=== PATIENT | male | born 1935 | race Two or more races ===

== ENCOUNTER 2017-02-24 09:33 | Inpatient (IN) | payer MEDICARE, OTHER ==
[~2017-02-24] VITALS: Ht 165.1 cm; Wt 68.0 kg
[2017-02-24] MEDS ORDERED: LOSARTAN-HCTZ1 EAC2 ORAL (09:50)
[2017-02-24] MEDS ORDERED: TAMSULOSIN HCL0.4 MG ORAL (09:50)
[2017-02-24] MEDS ORDERED: METFORMIN HCL500 M1 ORAL (09:50)
[2017-02-24] MEDS ORDERED: AMLODIPINE BESYL5 MG ORAL (09:50)
[2017-02-24] MEDS ORDERED: ATENOLOL50 MG ORAL (09:50)
[2017-02-24] MEDS ORDERED: CRESTOR10 M2 ORAL (09:50)
[2017-02-24 10:00] VITALS: BP 150/63
[2017-02-24] MEDS ORDERED: Vancomycin 1 GM in NS 275 ML IV ONE (10:15)
[2017-02-24] MEDS ORDERED: Morphine Sulfate 2mg/ml Inj IVP ONE (10:15)
[2017-02-24] MEDS ORDERED: Vancomycin 1gm inj IVPB ONE (10:49)
[2017-02-24 10:58] LABS: MEAN CORPUSCULAR HEMOGLOBIN 30.6 PG (27.0-31.0); MEAN CORPUSCULAR HGB CONC 32.6 G/DL (32.0-36.0); MEAN CORPUSCULAR VOLUME 94 FL (80-99); MEAN PLATELET VOLUME 8.5 FL (6.5-10.1); PLATELET COUNT 255 K/UL (150-450); RED BLOOD COUNT 4.58 M/UL (4.70-6.10); RED CELL DISTRIBUTION WIDTH 12.1 % (11.6-14.8); WHITE BLOOD COUNT 21.3 K/UL (4.8-10.8)
[2017-02-24 11:13] LABS: TROPONIN I < 0.30 ng/mL (<=0.30)
[2017-02-24 11:15] LABS: ALANINE AMINOTRANSFERASE 12 U/L (3-41); ALBUMIN/GLOBULIN RATIO 0.8 (1.0-2.7); ANION GAP 15 (5-15); ASPARTATE AMINO TRANSFERASE 14 U/L (5-40); CALCIUM 9.1 mg/dL (8.6-10.2); CARBON DIOXIDE 28 mEQ/L (20-30); CHLORIDE 90 mEQ/L (98-107); CREATININE 1.5 mg/dL (0.7-1.2); HEMOLYSIS 2; POTASSIUM 3.2 mEQ/L (3.4-4.9); SODIUM 133 mEQ/L (135-145); TOTAL PROTEIN 7.9 g/dL (6.6-8.7)
[2017-02-24 11:16] LABS: APPEARANCE,URINE CLEAR; KETONES,URINE 1+ (NEGATIVE); LEUKOCYTE ESTERASE ,URINE 1+ (NEGATIVE); NITRITE,URINE NEGATIVE (NEGATIVE); PH,URINE 6 (4.5-8.0); PROTEIN,URINE 3+ (NEGATIVE); UROBILINOGEN,URINE NORMAL MG/DL (0.0-1.0)
[2017-02-24 11:25] LABS: BACTERIA,URINE FEW /HPF; SQUAMOUS EPITHELIAL CELL,UR OCCASIONAL /LPF (NONE/OCC)
[2017-02-24 11:26] LABS: CKMB 2.6 ng/mL (< 6.7)
[2017-02-24 11:43] LABS: BAND NEUTROPHILS % (MANUAL) 0 % (0-8); BASOPHILS % (MANUAL) 0 % (0-2); EOSINOPHILS % (MANUAL) 0 % (0-3); LYMPHOCYTES % (MANUAL) 5 % (20-45); NEUTROPHILS % (MANUAL) 87 % (45-75); PLATELET ESTIMATE ADEQUATE; PLATELET MORPHOLOGY NORMAL; TOTAL CELLS COUNTED 100
[2017-02-24] MEDS ORDERED: Nitroglycerin Subl 0.4mg tab (Bottle Of 25) SL PRN (11:45)
[2017-02-24] MEDS ORDERED: DuoNeb 0.5-3(2.5)mg/3ml neb HHN PRN (11:45)
[2017-02-24] MEDS ORDERED: Miralax 17gm pkt ORAL PRN (11:45)
--- NOTE | 2017-02-24 11:58 | Emergency Room Report ---
History of Present Illness General Chief Complaint: Skin Rash/Abscess Source: Patient Present Illness HPI 81-year-old male presents to ED for evaluation of left foot swelling x3 days. States that he initially had a fever and now started developing swelling and pain to the left foot. Foot is warm to touch. Swollen. Pain is a 5/10, throbbing, nonradiating. Denies chest pain or shortness of breath. Denies any fever at this time. No other aggravating relieving factors. Denies any other associated symptoms Allergies: Coded Allergies: No Known Allergies (Unverified , 02/24/17) Patient History Past Medical History: DM, HTN Past Surgical History: none Pertinent Family History: none Social History: Denies: alcohol use, drug use, smoking Immunizations: UTD Reviewed Nursing Documentation: PMH: Agreed, PSxH: Agreed Nursing Documentation-PMH Hx Hypertension: Yes Hx Diabetes: Yes Review of Systems All Other Systems: negative except mentioned in HPI Physical Exam Vital Signs Date Time Temp Pulse Resp B/P Pulse Ox O2 Delivery O2 Flow Rate FiO2 02/24/17 09:44 98.1 74 20 121/67 97 Room Air Sp02 EP Interpretation: reviewed, normal General Appearance: no apparent distress, alert, GCS 15, non-toxic Head: normocephalic Eyes: bilateral eye PERRL, bilateral eye normal inspection ENT: normal ENT inspection Neck: normal inspection Respiratory: chest non-tender, lungs clear, normal breath sounds, speaking full sentences Cardiovascular #1: regular rate, rhythm, no edema Gastrointestinal: normal bowel sounds, non tender, soft, non-distended, no guarding, no rebound Rectal: deferred Genitourinary: no CVA tenderness Musculoskeletal: back normal, gait/station normal, normal range of motion, non- tender, swelling - LLE Neurologic: alert, oriented x3, responsive, motor strength/tone normal, sensory intact, speech normal Psychiatric: normal inspection Skin: other - erythema/induration to LLE Lymphatic: normal inspection Medical Decision Making Diagnostic Impression: Primary Impression: Left leg cellulitis ER Course Hospital Course 81-year-old male presents to ED with redness, swelling to LLE Differential diagnoses include: Cellulitis, DVT, abscess, rash. Clinical course Patient placed on stretcher. After initial history and physical I ordered labs , blood Cx, UA, IVFs, doppler US of LLE labs reviewed - leukocytosis, Hb/Hct stable, no electrolyte abnormalities. Doppler US - no evidence of DVT antibiotics given. Case discussed with Dr Jackson and he agreed to accept the patient to his service for further care and support Diagnosis - left leg cellulitis Patient admitted to floor in serious condition Labs Test 02/24/17 10:20 02/24/17 11:00 White Blood Count 21.3 K/UL (4.8-10.8) Red Blood Count 4.58 M/UL (4.70-6.10) Hemoglobin 14.0 G/DL (14.2-18.0) Hematocrit 42.9 % (42.0-52.0) Mean Corpuscular Volume 94 FL (80-99) Mean Corpuscular Hemoglobin 30.6 PG (27.0-31.0) Mean Corpuscular Hemoglobin Concent 32.6 G/DL (32.0-36.0) Red Cell Distribution Width 12.1 % (11.6-14.8) Platelet Count 255 K/UL (150-450) Mean Platelet Volume 8.5 FL (6.5-10.1) Neutrophils (%) (Auto) % (45.0-75.0) Lymphocytes (%) (Auto) % (20.0-45.0) Monocytes (%) (Auto) % (1.0-10.0) Eosinophils (%) (Auto) % (0.0-3.0) Basophils (%) (Auto) % (0.0-2.0) Differential Total Cells Counted 100 Neutrophils % (Manual) 87 % (45-75) Lymphocytes % (Manual) 5 % (20-45) Monocytes % (Manual) 8 % (1-10) Eosinophils % (Manual) 0 % (0-3) Basophils % (Manual) 0 % (0-2) Band Neutrophils 0 % (0-8) Platelet Estimate Adequate Platelet Morphology Normal Red Blood Cell Morphology Normal Sodium Level 133 mEQ/L (135-145) Potassium Level 3.2 mEQ/L (3.4-4.9) Chloride Level 90 mEQ/L (98-107) Carbon Dioxide Level 28 mEQ/L (20-30) Anion Gap 15 (5-15) Blood Urea Nitrogen 32 mg/dL (7-23) Creatinine 1.5 mg/dL (0.7-1.2) Estimat Glomerular Filtration Rate mL/min (>60) Glucose Level 171 mg/dL (74-106) Lactic Acid Level 1.70 mmol/L (0.66-2.22) Calcium Level 9.1 mg/dL (8.6-10.2) Total Bilirubin 0.8 mg/dL (0.0-1.2) Aspartate Amino Transf (AST/SGOT) 14 U/L (5-40) Alanine Aminotransferase (ALT/SGPT) 12 U/L (3-41) Alkaline Phosphatase 55 U/L (40-129) Total Creatine Kinase 90 U/L (38-174) Creatine Kinase MB 2.6 ng/mL (< 6.7) Creatine Kinase MB Relative Index 2.8 Troponin I < 0.30 ng/mL (<=0.30) Pro-B-Type Natriuretic Peptide 785 pg/mL (0-450) Total Protein 7.9 g/dL (6.6-8.7) Albumin 3.6 g/dL (3.5-5.2) Globulin 4.3 g/dL Albumin/Globulin Ratio 0.8 (1.0-2.7) Urine Color Yellow Urine Appearance Clear Urine pH 6 (4.5-8.0) Urine Specific [place] 1.015 (1.005-1.035) Urine Protein 3+ (NEGATIVE) Urine Glucose (UA) Negative (NEGATIVE) Urine Ketones 1+ (NEGATIVE) Urine Occult Blood 2+ (NEGATIVE) Urine Nitrite Negative (NEGATIVE) Urine Bilirubin Negative (NEGATIVE) Urine Urobilinogen Normal MG/DL (0.0-1.0) Urine Leukocyte Esterase 1+ (NEGATIVE) Urine RBC 5-10 /HPF (0 - 0) Urine WBC 2-4 /HPF (0 - 0) Urine Squamous Epithelial Cells Occasional /LPF Urine Bacteria Few /HPF (NONE) CT/MRI/US Diagnostic Results CT/MRI/US Diagnostic Results : Imaging Test Ordered: Doppler US Impression negative for DVT Last Vital Signs Date Time Temp Pulse Resp B/P Pulse Ox O2 Delivery O2 Flow Rate FiO2 02/24/17 10:00 98.6 103 18 150/63 98 Room Air Status: improved Disposition: ADMITTED INPATIENT Condition: Serious Referrals: NON PHYSICIAN (PCP) TALI IBARRA M.D. Feb 24, 2017 11:58
[2017-02-24 12:00] VITALS: BP 130/63
--- NOTE | 2017-02-24 12:34 | Consultation ---
Consult Note Consult Note [id number] EDWAR TAM M.D. Feb 24, 2017 12:34
--- NOTE | 2017-02-24 16:16 | Consultation ---
DATE OF CONSULTATION: 02/24/2017 INFECTIOUS DISEASES CONSULTATION CONSULTING PHYSICIAN: Diego Nugent M.D. REFERRING PHYSICIAN: Sybil Jackson M.D. REASON FOR CONSULTATION: Evaluation of the patient for lower extremity cellulitis and antibiotic management. HISTORY OF PRESENT ILLNESS: The patient is an 81-year-old male, who was admitted to this medical center due to and swelling and erythema of the left lower extremity. Infectious Disease consultation has been requested for further evaluation of the patient and antibiotic management. PAST MEDICAL HISTORY: 1. Diabetes. 2. Hypertension. MEDICATIONS: IV vancomycin and cefepime. ALLERGIES: No known drug allergies. SOCIAL HISTORY: Negative for alcohol, drug abuse, or smoking. FAMILY HISTORY: Noncontributory. PHYSICAL EXAMINATION: VITAL SIGNS: Temperature 98 degrees, blood pressure 150/62, pulse 86, and respiratory rate 18. HEENT: No pale conjunctivae. No icterus. NECK: No lymphadenopathy. CHEST: Clear. HEART: S1 and S2. ABDOMEN: Soft. EXTREMITIES: The patient has left lower extremity cellulitis and tenderness. Mild cellulitis of the right lower extremity. LABORATORY DATA: White blood cells 21, hemoglobin 14, and platelets 255,000. UA is unremarkable. BUN 32 and creatinine 1.5. ALT, AST, and alkaline phosphatase are unremarkable. ASSESSMENT: The patient is an 81-year-old male with multiple medical problems as listed above, who has, 1. Leukocytosis. 2. Lower extremity cellulitis. 3. Possible sepsis. 4. Bacteremia. PLAN: 1. We will continue the patient on IV vancomycin and cefepime day #1, we may stop IV cefepime soon. 2. Monitor CBC. 3. Monitor BMP. 4. Monitor blood cultures. 5. Monitor clinical course. 6. Based on the patient's clinical course and labs, we will do further recommendations. Thank you, Dr. Jackson,for allowing me to participate in the care of this patient. I will follow the patient with you during this hospitalization. Diego Nugent M.D. DR: PETERSON JOB#: [id number] CC:
[2017-02-24] MEDS: Morphine Sulfate 2mg/ml Inj IVP PRN (16:23)
[2017-02-24] MEDS: Cefepime HCl 2 GM in D5W 110 ML IV SCH (16:23)
[2017-02-24] MEDS: NovoLOG Insulin Flexpen SUBQ SCH ×3 (16:30→20:52)
--- NOTE | 2017-02-24 19:26 | History and Physical ---
History of Present Illness General Date patient seen: Feb 24, 2017 Reason for Hospitalization: Skin Rash/Abscess Present Illness HPI 81-year-old male with pmhx of HTN, DM presented to ED for evaluation of left foot swelling x3 days. He initially had a fever and now started developing swelling and pain to the left foot. Foot is warm to touch. Swollen. Pain is a 5/10, throbbing, nonradiating. Denies chest pain or shortness of breath. Denies any fever at this time. No other aggravating relieving factors. Denies any other associated symptoms Allergies: Coded Allergies: No Known Allergies (Unverified , 02/24/17) Medication History Scheduled Amlodipine Besylate* (Amlodipine Besylate*), 5 MG ORAL DAILY, (Reported) Atenolol* (Tenormin*), 50 MG ORAL DAILY, (Reported) Losartan/Hydrochlorothiazide (Losartan-Hctz 50-12.5 Mg Tab), 1 TAB ORAL DAILY, ( Reported) Metformin Hcl* (Metformin Hcl*), 500 MG ORAL DAILY, (Reported) Rosuvastatin Calcium* (Crestor*), 5 MG ORAL DAILY, (Reported) Tamsulosin Hcl (Tamsulosin Hcl*), 0.4 MG ORAL BEDTIME, (Reported) Patient History Healthcare decision maker Resuscitation status Full Code Advanced Directive on File Past Medical/Surgical History Past Medical/Surgical History: (1) Diabetes mellitus (2) HTN (hypertension) Review of Systems Constitutional: Reports: fever, malaise All Other Systems: negative except mentioned in HPI Physical Exam General Appearance: WD/WN, no apparent distress Lines, tubes and drains: peripheral HEENT: normocephalic, atraumatic Neck: non-tender, normal alignment Respiratory/Chest: chest wall non-tender, lungs clear Cardiovascular/Chest: normal peripheral pulses Abdomen: normal bowel sounds Genitourinary/Rectal: normal genital exam Extremities: normal range of motion Last 24 Hour Vital Signs Date Time Temp Pulse Resp B/P Pulse Ox O2 Delivery O2 Flow Rate FiO2 02/24/17 17:46 81 147/82 02/24/17 17:10 98.0 02/24/17 16:22 81 147/82 02/24/17 13:58 81 19 147/82 100 Room Air 02/24/17 12:00 98.6 67 22 130/63 97 Room Air 02/24/17 10:00 98.6 103 18 150/63 98 Room Air 02/24/17 09:44 98.1 74 20 121/67 97 Room Air Laboratory Tests Test 02/24/17 10:20 02/24/17 11:00 White Blood Count 21.3 K/UL (4.8-10.8) H Red Blood Count 4.58 M/UL (4.70-6.10) L Hemoglobin 14.0 G/DL (14.2-18.0) L Hematocrit 42.9 % (42.0-52.0) Mean Corpuscular Volume 94 FL (80-99) Mean Corpuscular Hemoglobin 30.6 PG (27.0-31.0) Mean Corpuscular Hemoglobin Concent 32.6 G/DL (32.0-36.0) Red Cell Distribution Width 12.1 % (11.6-14.8) Platelet Count 255 K/UL (150-450) Mean Platelet Volume 8.5 FL (6.5-10.1) Neutrophils (%) (Auto) % (45.0-75.0) Lymphocytes (%) (Auto) % (20.0-45.0) Monocytes (%) (Auto) % (1.0-10.0) Eosinophils (%) (Auto) % (0.0-3.0) Basophils (%) (Auto) % (0.0-2.0) Differential Total Cells Counted 100 Neutrophils % (Manual) 87 % (45-75) H Lymphocytes % (Manual) 5 % (20-45) L Monocytes % (Manual) 8 % (1-10) Eosinophils % (Manual) 0 % (0-3) Basophils % (Manual) 0 % (0-2) Band Neutrophils 0 % (0-8) Platelet Estimate Adequate Platelet Morphology Normal Red Blood Cell Morphology Normal Sodium Level 133 mEQ/L (135-145) L Potassium Level 3.2 mEQ/L (3.4-4.9) L Chloride Level 90 mEQ/L (98-107) L Carbon Dioxide Level 28 mEQ/L (20-30) Anion Gap 15 (5-15) Blood Urea Nitrogen 32 mg/dL (7-23) H Creatinine 1.5 mg/dL (0.7-1.2) H Estimat Glomerular Filtration Rate mL/min (>60) Glucose Level 171 mg/dL (74-106) H Lactic Acid Level 1.70 mmol/L (0.66-2.22) Calcium Level 9.1 mg/dL (8.6-10.2) Total Bilirubin 0.8 mg/dL (0.0-1.2) Aspartate Amino Transf (AST/SGOT) 14 U/L (5-40) Alanine Aminotransferase (ALT/SGPT) 12 U/L (3-41) Alkaline Phosphatase 55 U/L (40-129) Total Creatine Kinase 90 U/L (38-174) Creatine Kinase MB 2.6 ng/mL (< 6.7) Creatine Kinase MB Relative Index 2.8 Troponin I < 0.30 ng/mL (<=0.30) Pro-B-Type Natriuretic Peptide 785 pg/mL (0-450) H Total Protein 7.9 g/dL (6.6-8.7) Albumin 3.6 g/dL (3.5-5.2) Globulin 4.3 g/dL Albumin/Globulin Ratio 0.8 (1.0-2.7) L Urine Color Yellow Urine Appearance Clear Urine pH 6 (4.5-8.0) Urine Specific [place] 1.015 (1.005-1.035) Urine Protein 3+ (NEGATIVE) H Urine Glucose (UA) Negative (NEGATIVE) Urine Ketones 1+ (NEGATIVE) H Urine Occult Blood 2+ (NEGATIVE) H Urine Nitrite Negative (NEGATIVE) Urine Bilirubin Negative (NEGATIVE) Urine Urobilinogen Normal MG/DL (0.0-1.0) Urine Leukocyte Esterase 1+ (NEGATIVE) H Urine RBC 5-10 /HPF (0 - 0) H Urine WBC 2-4 /HPF (0 - 0) Urine Squamous Epithelial Cells Occasional /LPF Urine Bacteria Few /HPF (NONE) Height (Feet): 5 Height (Inches): 5.00 Weight (Pounds): 150 Medications Current Medications Medications (Trade) Dose Ordered Sig/Mariusz Route PRN Reason Start Time Stop Time Status Last Admin Dose Admin Acetaminophen (Tylenol) 650 mg Q4H PRN ORAL fever 02/24/17 11:45 03/26/17 11:44 Albuterol/ Ipratropium 3 ml 3 ml EVERY 4 HOURS PRN HHN Shortness of Breath 02/24/17 11:45 03/01/17 11:44 Amlodipine Besylate (Norvasc) 5 mg DAILY ORAL 02/24/17 18:00 03/26/17 17:59 02/24/17 17:46 Atenolol (Tenormin) 50 mg DAILY ORAL 02/24/17 14:30 03/26/17 14:29 02/24/17 16:22 Cefepime HCl 2 gm/ Dextrose 110 ml @ 220 mls/hr Q24H IV 02/24/17 15:00 03/03/17 14:59 02/24/17 16:23 Dextrose (Dextrose 50%) STAT PRN IV Hypoglycemia 02/24/17 11:45 03/26/17 11:44 Heparin Sodium (Porcine) (Heparin 5000 units/ml) 5,000 units EVERY 12 HOURS SUBQ 02/24/17 21:00 03/26/17 20:59 Insulin Aspart (NovoLOG) BEFORE MEALS AND HS SUBQ 02/24/17 16:30 03/26/17 16:29 02/24/17 17:48 Morphine Sulfate (Morphine Sulfate) 2 mg EVERY 4 HOURS PRN IVP Moderate Pain (Pain Scale 4-6) 02/24/17 11:45 03/03/17 11:44 02/24/17 16:23 Nitroglycerin (Ntg) 0.4 mg Q5M PRN SL Prn Chest Pain 02/24/17 11:45 03/26/17 11:44 Ondansetron HCl (Zofran) 4 mg Q6H PRN IVP Nausea & Vomiting 02/24/17 11:45 03/26/17 11:44 Polyethylene Glycol (Miralax) 17 gm DAILYPRN PRN ORAL Constipation 02/24/17 11:45 03/26/17 11:44 Tamsulosin HCl (Flomax) 0.4 mg BEDTIME ORAL 02/24/17 21:00 03/26/17 20:59 Temazepam (Restoril) 15 mg HSPRN PRN ORAL Insomnia 02/24/17 11:45 03/03/17 11:44 Vancomycin HCl/ Dextrose (Vancomycin/D5W) 275 ml @ 183.3 mls/ hr Q24H IVPB 02/25/17 06:00 03/02/17 05:59 Assessment/Plan Problem List: (1) Sepsis ICD Codes: A41.9 - Sepsis, unspecified organism SNOMED: 52403908 (2) Cellulitis ICD Codes: L03.90 - Cellulitis, unspecified SNOMED: 950090598 (3) Diabetes mellitus ICD Codes: E11.9 - Type 2 diabetes mellitus without complications SNOMED: 07846915 (4) HTN (hypertension) ICD Codes: I10 - Essential (primary) hypertension SNOMED: 49009952 Assessment/Plan check cultures broad spectrum abx sliding scale diabetic diet SHANE GALINDO Feb 24, 2017 19:26
[2017-02-24 20:00] VITALS: BP 133/67
[2017-02-24] MEDS: Tamsulosin 0.4mg cap ORAL SCH (20:51)
[2017-02-24] MEDS: Heparin 5000 units/ml inj SUBQ SCH (20:53)
[2017-02-24 23:42] VITALS: BP 131/66
[2017-02-25] VITALS: BP 104/41
[2017-02-25 04:00] VITALS: BP 124/63
[2017-02-25] MEDS: NovoLOG Insulin Flexpen SUBQ SCH ×4 (05:47→20:44)
[2017-02-25] MEDS ORDERED: Vancomycin 750 MG in D5W 275 ML IVPB SCH (06:00)
[2017-02-25 08:18] LABS: ALANINE AMINOTRANSFERASE 10 U/L (3-41); ALBUMIN/GLOBULIN RATIO 0.7 (1.0-2.7); ANION GAP 11 (5-15); ASPARTATE AMINO TRANSFERASE 10 U/L (5-40); CALCIUM 8.6 mg/dL (8.6-10.2); CARBON DIOXIDE 26 mEQ/L (20-30); CHLORIDE 97 mEQ/L (98-107); CREATININE 1.1 mg/dL (0.7-1.2); HEMOLYSIS 1; MEAN CORPUSCULAR HEMOGLOBIN 31.1 PG (27.0-31.0); MEAN CORPUSCULAR HGB CONC 33.3 G/DL (32.0-36.0); MEAN CORPUSCULAR VOLUME 93 FL (80-99); MEAN PLATELET VOLUME 7.9 FL (6.5-10.1); PLATELET COUNT 232 K/UL (150-450); POTASSIUM 2.9 mEQ/L (3.4-4.9); RED BLOOD COUNT 3.89 M/UL (4.70-6.10); RED CELL DISTRIBUTION WIDTH 12.2 % (11.6-14.8); SODIUM 134 mEQ/L (135-145); TOTAL PROTEIN 6.4 g/dL (6.6-8.7); WHITE BLOOD COUNT 18.9 K/UL (4.8-10.8)
[2017-02-25 08:19] VITALS: BP 133/67
[2017-02-25] MEDS: Heparin 5000 units/ml inj SUBQ SCH ×2 (09:01→20:43)
[2017-02-25] MEDS: Morphine Sulfate 2mg/ml Inj IVP PRN (11:19)
[2017-02-25 11:48] LABS: BAND NEUTROPHILS % (MANUAL) 2 % (0-8); LYMPHOCYTES % (MANUAL) 9 % (20-45); NEUTROPHILS % (MANUAL) 79 % (45-75); TOTAL CELLS COUNTED 100
[2017-02-25 11:49] LABS: BASOPHILS % (MANUAL) 0 % (0-2); EOSINOPHILS % (MANUAL) 0 % (0-3); PLATELET ESTIMATE ADEQUATE; PLATELET MORPHOLOGY NORMAL
[2017-02-25 11:59] VITALS: BP 120/63
--- NOTE | 2017-02-25 12:27 | Diagnostic Imaging Report ---
APPROVED REPORT CPT Code: 02529 Present Symptoms Comments: Swelling and pain LEG: Venous imaging reveals a patent deep venous system. There is no evidence of thrombus within the femoral, popliteal or tibial segments. The greater saphenous vein is also within normal limits. Doppler indicates normal spontaneous flow within these segments.
--- NOTE | 2017-02-25 13:17 | Infectious Diseases Prog Note ---
Assessment/Plan Assessment/Plan A; Left leg cellulitis DM HPN P; Continue Vancomycin & Cefepime Subjective ROS Limited/Unobtainable: No Respiratory: Reports: no symptoms Cardiovascular: Reports: no symptoms Gastrointestinal/Abdominal: Reports: no symptoms Genitourinary: Reports: no symptoms Musculoskeletal: Reports: other - in left leg, pain, swelling Allergies: Coded Allergies: No Known Allergies (Unverified , 02/24/17) Objective Vital Signs Last 24 Hour Vital Signs Date Time Temp Pulse Resp B/P Pulse Ox O2 Delivery O2 Flow Rate FiO2 02/25/17 11:59 98.1 64 19 120/63 94 Room Air 02/25/17 09:02 75 133/67 02/25/17 09:02 75 133/67 02/25/17 08:19 97.3 75 19 133/67 95 Room Air 02/25/17 07:51 74 16 Room Air 21 02/25/17 04:00 97.8 75 18 124/63 93 Room Air 02/24/17 23:42 97.8 76 18 131/66 90 Room Air 02/24/17 20:00 98.1 77 19 133/67 91 Room Air 02/24/17 17:46 81 147/82 02/24/17 17:10 98.0 02/24/17 16:22 81 147/82 02/24/17 13:58 81 19 147/82 100 Room Air Height (Feet): 5 Height (Inches): 5.00 Weight (Pounds): 150 General Appearance: no acute distress HEENT: mucous membranes moist Respiratory/Chest: lungs clear Cardiovascular: normal rate Abdomen: soft, non tender Extremities: other - edema & erythema of left leg , below knee Neurologic/Psychiatric: alert, oriented x 3, responsive Laboratory Tests Test 02/25/17 07:10 White Blood Count 18.9 K/UL (4.8-10.8) H Red Blood Count 3.89 M/UL (4.70-6.10) L Hemoglobin 12.1 G/DL (14.2-18.0) L Hematocrit 36.3 % (42.0-52.0) L Mean Corpuscular Volume 93 FL (80-99) Mean Corpuscular Hemoglobin 31.1 PG (27.0-31.0) H Mean Corpuscular Hemoglobin Concent 33.3 G/DL (32.0-36.0) Red Cell Distribution Width 12.2 % (11.6-14.8) Platelet Count 232 K/UL (150-450) Mean Platelet Volume 7.9 FL (6.5-10.1) Neutrophils (%) (Auto) % (45.0-75.0) Lymphocytes (%) (Auto) % (20.0-45.0) Monocytes (%) (Auto) % (1.0-10.0) Eosinophils (%) (Auto) % (0.0-3.0) Basophils (%) (Auto) % (0.0-2.0) Differential Total Cells Counted 100 Neutrophils % (Manual) 79 % (45-75) H Lymphocytes % (Manual) 9 % (20-45) L Monocytes % (Manual) 10 % (1-10) Eosinophils % (Manual) 0 % (0-3) Basophils % (Manual) 0 % (0-2) Band Neutrophils 2 % (0-8) Platelet Estimate Adequate Platelet Morphology Normal Red Blood Cell Morphology Normal Sodium Level 134 mEQ/L (135-145) L Potassium Level 2.9 mEQ/L (3.4-4.9) L Chloride Level 97 mEQ/L (98-107) L Carbon Dioxide Level 26 mEQ/L (20-30) Anion Gap 11 (5-15) Blood Urea Nitrogen 25 mg/dL (7-23) H Creatinine 1.1 mg/dL (0.7-1.2) Estimat Glomerular Filtration Rate mL/min (>60) Glucose Level 183 mg/dL (74-106) H Calcium Level 8.6 mg/dL (8.6-10.2) Total Bilirubin 0.6 mg/dL (0.0-1.2) Aspartate Amino Transf (AST/SGOT) 10 U/L (5-40) Alanine Aminotransferase (ALT/SGPT) 10 U/L (3-41) Alkaline Phosphatase 73 U/L (40-129) Total Protein 6.4 g/dL (6.6-8.7) L Albumin 2.8 g/dL (3.5-5.2) L Globulin 3.6 g/dL Albumin/Globulin Ratio 0.7 (1.0-2.7) L Current Medications Medications (Trade) Dose Ordered Sig/Mariusz Route PRN Reason Start Time Stop Time Status Last Admin Dose Admin Acetaminophen (Tylenol) 650 mg Q4H PRN ORAL fever 02/24/17 11:45 03/26/17 11:44 Albuterol/ Ipratropium 3 ml 3 ml EVERY 4 HOURS PRN HHN Shortness of Breath 02/24/17 11:45 03/01/17 11:44 Amlodipine Besylate (Norvasc) 5 mg DAILY ORAL 02/24/17 18:00 03/26/17 17:59 02/25/17 09:02 Atenolol (Tenormin) 50 mg DAILY ORAL 02/24/17 14:30 03/26/17 14:29 02/25/17 09:02 Cefepime HCl 2 gm/ Dextrose 110 ml @ 220 mls/hr Q24H IV 02/24/17 15:00 03/03/17 14:59 02/24/17 16:23 Dextrose (Dextrose 50%) STAT PRN IV Hypoglycemia 02/24/17 11:45 03/26/17 11:44 Heparin Sodium (Porcine) (Heparin 5000 units/ml) 5,000 units EVERY 12 HOURS SUBQ 02/24/17 21:00 03/26/17 20:59 02/25/17 09:01 Insulin Aspart (NovoLOG) BEFORE MEALS AND HS SUBQ 02/24/17 16:30 03/26/17 16:29 02/25/17 11:36 Morphine Sulfate (Morphine Sulfate) 2 mg EVERY 4 HOURS PRN IVP Moderate Pain (Pain Scale 4-6) 02/24/17 11:45 03/03/17 11:44 02/25/17 11:19 Nitroglycerin (Ntg) 0.4 mg Q5M PRN SL Prn Chest Pain 02/24/17 11:45 03/26/17 11:44 Ondansetron HCl (Zofran) 4 mg Q6H PRN IVP Nausea & Vomiting 02/24/17 11:45 03/26/17 11:44 Polyethylene Glycol (Miralax) 17 gm DAILYPRN PRN ORAL Constipation 02/24/17 11:45 03/26/17 11:44 Tamsulosin HCl (Flomax) 0.4 mg BEDTIME ORAL 02/24/17 21:00 03/26/17 20:59 02/24/17 20:51 Temazepam (Restoril) 15 mg HSPRN PRN ORAL Insomnia 02/24/17 11:45 03/03/17 11:44 Vancomycin HCl/ Dextrose (Vancomycin/D5W) 275 ml @ 183.3 mls/ hr Q24H IVPB 02/25/17 06:00 03/02/17 05:59 02/25/17 05:24 LOKESH RODRIGUES Feb 25, 2017 13:17
--- NOTE | 2017-02-25 13:48 | Diagnostic Imaging Report ---
APPROVED REPORT CPT Code: 44676 Present Symptoms Lower Extremity Pain: Lower Extremity Edema: RIGHT LEG: Venous imaging reveals a patent deep venous system. There is no evidence of thrombus within the femoral, popliteal or tibial segments. The greater saphenous vein is also within normal limits. Doppler indicates normal spontaneous flow within these segments.
[2017-02-25] MEDS: Cefepime HCl 2 GM in D5W 110 ML IV SCH (15:11)
[2017-02-25 15:48] VITALS: BP 119/63
[2017-02-25 20:00] VITALS: BP 147/66
[2017-02-25] MEDS: Tamsulosin 0.4mg cap ORAL SCH (20:41)
--- NOTE | 2017-02-25 23:02 | Pulmonology Progress Note ---
Assessment/Plan Problems: (1) Sepsis (2) Cellulitis (3) Diabetes mellitus (4) HTN (hypertension) Assessment/Plan iv antibioitcs check cultures dvt prophylaxis check cbc/ wbc f/u clinically all noted Subjective ROS Limited/Unobtainable: No Constitutional: Reports: no symptoms Respiratory: Reports: no symptoms Cardiovascular: Reports: no symptoms Allergies: Coded Allergies: No Known Allergies (Unverified , 02/24/17) Objective Last 24 Hour Vital Signs Date Time Temp Pulse Resp B/P Pulse Ox O2 Delivery O2 Flow Rate FiO2 02/25/17 20:01 71 16 Room Air 21 02/25/17 20:00 97.7 70 19 147/66 Room Air 02/25/17 15:48 98.4 65 19 119/63 95 Room Air 02/25/17 11:59 98.1 64 19 120/63 94 Room Air 02/25/17 09:02 75 133/67 02/25/17 09:02 75 133/67 02/25/17 08:19 97.3 75 19 133/67 95 Room Air 02/25/17 07:51 74 16 Room Air 21 02/25/17 04:00 97.8 75 18 124/63 93 Room Air 02/24/17 23:42 97.8 76 18 131/66 90 Room Air Intake and Output 02/24/17 02/25/17 19:00 07:00 Intake Total 1515 ml 275.0 ml Balance 1515 ml 275.0 ml Intake Oral 240 ml IV Total 1275 ml 275.0 ml # Voids 2 Objective improivng General Appearance: WD/WN HEENT: normocephalic Respiratory/Chest: chest wall non-tender, normal breath sounds Cardiovascular: normal peripheral pulses, normal rate Abdomen: normal bowel sounds, soft, non tender Genitourinary: normal external genitalia Extremities: no cyanosis Laboratory Tests 02/25/17 07:10: White Blood Count 18.9H, Red Blood Count 3.89L, Hemoglobin 12.1L, Hematocrit 36.3L, Mean Corpuscular Volume 93, Mean Corpuscular Hemoglobin 31.1H, Mean Corpuscular Hemoglobin Concent 33.3, Red Cell Distribution Width 12.2, Platelet Count 232, Mean Platelet Volume 7.9, Neutrophils (%) (Auto) , Lymphocytes (%) ( Auto) , Monocytes (%) (Auto) , Eosinophils (%) (Auto) , Basophils (%) (Auto) , Differential Total Cells Counted 100, Neutrophils % (Manual) 79H, Lymphocytes % (Manual) 9L, Monocytes % (Manual) 10, Eosinophils % (Manual) 0, Basophils % ( Manual) 0, Band Neutrophils 2, Platelet Estimate Adequate, Platelet Morphology Normal, Red Blood Cell Morphology Normal, Sodium Level 134L, Potassium Level 2.9L, Chloride Level 97L, Carbon Dioxide Level 26, Anion Gap 11, Blood Urea Nitrogen 25H, Creatinine 1.1, Estimat Glomerular Filtration Rate , Glucose Level 183H, Calcium Level 8.6, Total Bilirubin 0.6, Aspartate Amino Transf (AST/ SGOT) 10, Alanine Aminotransferase (ALT/SGPT) 10, Alkaline Phosphatase 73, Total Protein 6.4L, Albumin 2.8L, Globulin 3.6, Albumin/Globulin Ratio 0.7L Current Medications Medications (Trade) Dose Ordered Sig/Mariusz Route PRN Reason Start Time Stop Time Status Last Admin Dose Admin Acetaminophen (Tylenol) 650 mg Q4H PRN ORAL fever 02/24/17 11:45 03/26/17 11:44 Albuterol/ Ipratropium 3 ml 3 ml EVERY 4 HOURS PRN HHN Shortness of Breath 02/24/17 11:45 03/01/17 11:44 Amlodipine Besylate (Norvasc) 5 mg DAILY ORAL 02/24/17 18:00 03/26/17 17:59 02/25/17 09:02 Atenolol (Tenormin) 50 mg DAILY ORAL 02/24/17 14:30 03/26/17 14:29 02/25/17 09:02 Cefepime HCl/ Dextrose (Maxipime/D5W) 110 ml @ 220 mls/hr Q24H IV 02/24/17 15:00 03/03/17 14:59 02/25/17 15:11 Dextrose STAT PRN IV Hypoglycemia 02/24/17 11:45 03/26/17 11:44 Heparin Sodium (Porcine) (Heparin 5000 units/ml) 5,000 units EVERY 12 HOURS SUBQ 02/24/17 21:00 03/26/17 20:59 02/25/17 20:43 Insulin Aspart (NovoLOG) BEFORE MEALS AND HS SUBQ 02/24/17 16:30 03/26/17 16:29 02/25/17 20:44 Morphine Sulfate (Morphine Sulfate) 2 mg EVERY 4 HOURS PRN IVP Moderate Pain (Pain Scale 4-6) 02/24/17 11:45 03/03/17 11:44 02/25/17 11:19 Nitroglycerin (Ntg) 0.4 mg Q5M PRN SL Prn Chest Pain 02/24/17 11:45 03/26/17 11:44 Ondansetron HCl (Zofran) 4 mg Q6H PRN IVP Nausea & Vomiting 02/24/17 11:45 03/26/17 11:44 Polyethylene Glycol (Miralax) 17 gm DAILYPRN PRN ORAL Constipation 02/24/17 11:45 03/26/17 11:44 Tamsulosin HCl (Flomax) 0.4 mg BEDTIME ORAL 02/24/17 21:00 03/26/17 20:59 02/25/17 20:41 Temazepam (Restoril) 15 mg HSPRN PRN ORAL Insomnia 02/24/17 11:45 03/03/17 11:44 Vancomycin HCl/ Dextrose (Vancomycin/D5W) 275 ml @ 183.3 mls/ hr Q24H IVPB 02/26/17 06:00 03/03/17 05:59 SHANE GALINDO Feb 25, 2017 23:02
[2017-02-26] VITALS (7 sets, daily range): BP systolic 104–132; BP diastolic 41–70
[2017-02-26] MEDS: Vancomycin 1 GM in D5W 275 ML IVPB SCH (05:02)
[2017-02-26] MEDS: NovoLOG Insulin Flexpen SUBQ SCH ×4 (05:58→20:38)
[2017-02-26] MEDS: Morphine Sulfate 2mg/ml Inj IVP PRN (08:44)
[2017-02-26] MEDS: Heparin 5000 units/ml inj SUBQ SCH ×2 (08:48→20:38)
--- NOTE | 2017-02-26 13:12 | Infectious Diseases Prog Note ---
Assessment/Plan Assessment/Plan A; Left leg cellulitis DM HPN P; Continue Vancomycin & Cefepime culture was obtained from left ankle blister Subjective ROS Limited/Unobtainable: No Constitutional: Reports: no symptoms Cardiovascular: Reports: no symptoms Gastrointestinal/Abdominal: Reports: no symptoms Genitourinary: Reports: no symptoms Musculoskeletal: Reports: other - in left leg, pain Allergies: Coded Allergies: No Known Allergies (Unverified , 02/24/17) Objective Vital Signs Last 24 Hour Vital Signs Date Time Temp Pulse Resp B/P Pulse Ox O2 Delivery O2 Flow Rate FiO2 02/26/17 11:49 98.4 65 20 128/68 97 Room Air 02/26/17 08:48 68 125/66 02/26/17 08:48 68 125/66 02/26/17 07:59 97.8 68 20 125/66 97 Room Air 02/26/17 07:55 68 16 Room Air 21 02/26/17 04:06 96.6 70 19 116/53 97 Room Air 02/26/17 02:00 96.7 66 19 104/41 97 Room Air 02/26/17 00:00 96.7 66 19 104/41 97 Room Air 02/25/17 20:01 71 16 Room Air 21 02/25/17 20:00 97.7 70 19 147/66 Room Air 02/25/17 15:48 98.4 65 19 119/63 95 Room Air Height (Feet): 5 Height (Inches): 5.00 Weight (Pounds): 150 General Appearance: no acute distress HEENT: mucous membranes moist Respiratory/Chest: lungs clear Cardiovascular: normal rate Abdomen: soft, non tender Extremities: other - edema, erythema of left leg Skin: other - blister in left leg Neurologic/Psychiatric: alert, oriented x 3, responsive Microbiology Date/Time Source Procedure Growth Status 02/24/17 10:15 Blood Blood Culture - Preliminary NO GROWTH AFTER 24 HOURS Resulted 02/24/17 10:15 Blood Blood Culture - Preliminary NO GROWTH AFTER 24 HOURS Resulted Current Medications Medications (Trade) Dose Ordered Sig/Mariusz Route PRN Reason Start Time Stop Time Status Last Admin Dose Admin Acetaminophen (Tylenol) 650 mg Q4H PRN ORAL fever 02/24/17 11:45 03/26/17 11:44 Albuterol/ Ipratropium 3 ml 3 ml EVERY 4 HOURS PRN HHN Shortness of Breath 02/24/17 11:45 03/01/17 11:44 Amlodipine Besylate (Norvasc) 5 mg DAILY ORAL 02/24/17 18:00 03/26/17 17:59 02/25/17 09:02 Atenolol (Tenormin) 50 mg DAILY ORAL 02/24/17 14:30 03/26/17 14:29 02/25/17 09:02 Cefepime HCl/ Dextrose (Maxipime/D5W) 110 ml @ 220 mls/hr Q24H IV 02/24/17 15:00 03/03/17 14:59 02/25/17 15:11 Dextrose STAT PRN IV Hypoglycemia 02/24/17 11:45 03/26/17 11:44 Heparin Sodium (Porcine) (Heparin 5000 units/ml) 5,000 units EVERY 12 HOURS SUBQ 02/24/17 21:00 03/26/17 20:59 02/26/17 08:48 Insulin Aspart (NovoLOG) BEFORE MEALS AND HS SUBQ 02/24/17 16:30 03/26/17 16:29 02/26/17 11:50 Morphine Sulfate (Morphine Sulfate) 2 mg EVERY 4 HOURS PRN IVP Moderate Pain (Pain Scale 4-6) 02/24/17 11:45 03/03/17 11:44 02/26/17 08:44 Nitroglycerin (Ntg) 0.4 mg Q5M PRN SL Prn Chest Pain 02/24/17 11:45 03/26/17 11:44 Ondansetron HCl (Zofran) 4 mg Q6H PRN IVP Nausea & Vomiting 02/24/17 11:45 03/26/17 11:44 Polyethylene Glycol (Miralax) 17 gm DAILYPRN PRN ORAL Constipation 02/24/17 11:45 03/26/17 11:44 Tamsulosin HCl (Flomax) 0.4 mg BEDTIME ORAL 02/24/17 21:00 03/26/17 20:59 02/25/17 20:41 Temazepam (Restoril) 15 mg HSPRN PRN ORAL Insomnia 02/24/17 11:45 03/03/17 11:44 Vancomycin HCl/ Dextrose (Vancomycin/D5W) 275 ml @ 183.3 mls/ hr Q24H IVPB 02/26/17 06:00 03/03/17 05:59 02/26/17 05:02 LOKESH RODRIGUES Feb 26, 2017 13:12
[2017-02-26] MEDS: Cefepime HCl 2 GM in D5W 110 ML IV SCH (14:05)
--- NOTE | 2017-02-26 19:20 | Pulmonology Progress Note ---
Assessment/Plan Problems: (1) Sepsis (2) ATN (acute tubular necrosis) (3) Cellulitis (4) HTN (hypertension) (5) Diabetes mellitus Assessment/Plan iv antibioitcs check cultures dvt prophylaxis check cbc/ wbc f/u clinically all noted picc line in am with possible dc home with IV antibiotics Subjective ROS Limited/Unobtainable: Yes Constitutional: Reports: no symptoms HEENT: Repors: no symptoms Respiratory: Reports: no symptoms Allergies: Coded Allergies: No Known Allergies (Unverified , 02/24/17) Objective Last 24 Hour Vital Signs Date Time Temp Pulse Resp B/P Pulse Ox O2 Delivery O2 Flow Rate FiO2 02/26/17 16:04 97.7 63 20 132/70 94 Room Air 02/26/17 11:49 98.4 65 20 128/68 97 Room Air 02/26/17 08:48 68 125/66 02/26/17 08:48 68 125/66 02/26/17 07:59 97.8 68 20 125/66 97 Room Air 02/26/17 07:55 68 16 Room Air 21 02/26/17 04:06 96.6 70 19 116/53 97 Room Air 02/26/17 02:00 96.7 66 19 104/41 97 Room Air 02/26/17 00:00 96.7 66 19 104/41 97 Room Air 02/25/17 20:01 71 16 Room Air 21 02/25/17 20:00 97.7 70 19 147/66 Room Air Intake and Output 02/25/17 02/26/17 19:00 07:00 Intake Total 810 ml 275.0 ml Balance 810 ml 275.0 ml Intake Oral 700 ml IV Total 110 ml 275.0 ml # Voids 2 Objective improivng HEENT: normocephalic, atraumatic Respiratory/Chest: chest wall non-tender, lungs clear Cardiovascular: normal peripheral pulses, normal rate Abdomen: normal bowel sounds, soft, non tender Genitourinary: normal external genitalia Extremities: no cyanosis Skin: rash, lesions 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 Microbiology Date/Time Source Procedure Growth Status 02/24/17 10:15 Blood Blood Culture - Preliminary NO GROWTH AFTER 24 HOURS Resulted 02/24/17 10:15 Blood Blood Culture - Preliminary NO GROWTH AFTER 24 HOURS Resulted Current Medications Medications (Trade) Dose Ordered Sig/Mariusz Route PRN Reason Start Time Stop Time Status Last Admin Dose Admin Acetaminophen (Tylenol) 650 mg Q4H PRN ORAL fever 02/24/17 11:45 03/26/17 11:44 Albuterol/ Ipratropium 3 ml 3 ml EVERY 4 HOURS PRN HHN Shortness of Breath 02/24/17 11:45 03/01/17 11:44 Amlodipine Besylate (Norvasc) 5 mg DAILY ORAL 02/24/17 18:00 03/26/17 17:59 02/25/17 09:02 Atenolol (Tenormin) 50 mg DAILY ORAL 02/24/17 14:30 03/26/17 14:29 02/25/17 09:02 Cefepime HCl/ Dextrose (Maxipime/D5W) 110 ml @ 220 mls/hr Q24H IV 02/24/17 15:00 03/03/17 14:59 02/26/17 14:05 Chlorhexidine Gluconate (Tanisha-Hex 2%) 1 applic QHS TOPIC 02/26/17 21:00 03/28/17 20:59 Dextrose STAT PRN IV Hypoglycemia 02/24/17 11:45 03/26/17 11:44 Heparin Sodium (Porcine) (Heparin 5000 units/ml) 5,000 units EVERY 12 HOURS SUBQ 02/24/17 21:00 03/26/17 20:59 02/26/17 08:48 Insulin Aspart (NovoLOG) BEFORE MEALS AND HS SUBQ 02/24/17 16:30 03/26/17 16:29 02/26/17 17:01 Morphine Sulfate (Morphine Sulfate) 2 mg EVERY 4 HOURS PRN IVP Moderate Pain (Pain Scale 4-6) 02/24/17 11:45 03/03/17 11:44 02/26/17 08:44 Nitroglycerin (Ntg) 0.4 mg Q5M PRN SL Prn Chest Pain 02/24/17 11:45 03/26/17 11:44 Ondansetron HCl (Zofran) 4 mg Q6H PRN IVP Nausea & Vomiting 02/24/17 11:45 03/26/17 11:44 Polyethylene Glycol (Miralax) 17 gm DAILYPRN PRN ORAL Constipation 02/24/17 11:45 03/26/17 11:44 02/26/17 17:47 Tamsulosin HCl (Flomax) 0.4 mg BEDTIME ORAL 02/24/17 21:00 03/26/17 20:59 02/25/17 20:41 Temazepam (Restoril) 15 mg HSPRN PRN ORAL Insomnia 02/24/17 11:45 03/03/17 11:44 Vancomycin HCl/ Dextrose (Vancomycin/D5W) 275 ml @ 183.3 mls/ hr Q24H IVPB 02/26/17 06:00 03/03/17 05:59 02/26/17 05:02 SHANE GALINDO Feb 26, 2017 19:20
[2017-02-26] MEDS: Dyna-Hex 2% Top Sol 8oz TOPIC SCH (20:39)
[2017-02-26] MEDS: Tamsulosin 0.4mg cap ORAL SCH (20:39)
[2017-02-27] VITALS: BP 125/61
[2017-02-27 04:00] VITALS: BP 114/49
[2017-02-27 05:03] LABS: BASOPHILS % (AUTO) 1.3 % (0.0-2.0); EOSINOPHILS % (AUTO) 3.6 % (0.0-3.0); LYMPHOCYTES % (AUTO) 16.3 % (20.0-45.0); MEAN CORPUSCULAR HGB CONC 32.1 G/DL (32.0-36.0); MEAN CORPUSCULAR VOLUME 93 FL (80-99); MEAN PLATELET VOLUME 6.8 FL (6.5-10.1); MONOCYTES % (AUTO) 11.1 % (1.0-10.0); NEUTROPHILS % (AUTO) 67.7 % (45.0-75.0); PLATELET COUNT 280 K/UL (150-450); RED BLOOD COUNT 3.94 M/UL (4.70-6.10); RED CELL DISTRIBUTION WIDTH 12.3 % (11.6-14.8)
[2017-02-27 05:25] LABS: PHOSPHORUS 3.1 mg/dL (2.5-4.8)
[2017-02-27 05:29] LABS: ALANINE AMINOTRANSFERASE 9 U/L (3-41); ALBUMIN/GLOBULIN RATIO 0.6 (1.0-2.7); ANION GAP 11 (5-15); ASPARTATE AMINO TRANSFERASE 11 U/L (5-40); CALCIUM 8.6 mg/dL (8.6-10.2); CARBON DIOXIDE 28 mEQ/L (20-30); CHLORIDE 102 mEQ/L (98-107); HEMOLYSIS 0; POTASSIUM 3.8 mEQ/L (3.4-4.9); SODIUM 141 mEQ/L (135-145); TOTAL PROTEIN 6.5 g/dL (6.6-8.7)
[2017-02-27] MEDS: NovoLOG Insulin Flexpen SUBQ SCH ×4 (06:05→21:10)
[2017-02-27] MEDS: Vancomycin 1 GM in D5W 275 ML IVPB SCH (06:22)
[2017-02-27 08:15] VITALS: BP 129/67
[2017-02-27] MEDS: Lidocaine 1% Plain 30 ml INJ SCH (08:30)
[2017-02-27] MEDS ORDERED: Heparin 2000 units/Ns 1000ml INJ SCH (08:30)
[2017-02-27] MEDS: Morphine Sulfate 2mg/ml Inj IVP PRN (08:39)
[2017-02-27] MEDS: Heparin 5000 units/ml inj SUBQ SCH ×2 (09:00→21:09)
--- NOTE | 2017-02-27 11:01 | Diagnostic Imaging Report ---
Indications: Infection requiring long-term IV antibiotics Technique: The procedure indications, risks, and alternatives were explained to the patient who understands and gives consent to proceed. Strict aseptic technique was utilized, including hand washing, use of hat and mask, use of sterile gown and gloves, sterile ultrasound gel and probe cover, prepping of left arm skin with 2% chlorhexidine solution, and application of full body sterile barrier over this area. Skin and subcutaneous soft tissues were infiltrated with 1% lidocaine and sodium bicarbonate. A small dermatotomy was made, through which the patent, adequate size left basilic vein was punctured percutaneously under direct sonographic guidance with a 21-gauge needle. Exchange was made over a 0.018 inch guidewire for a 5 Israeli peel-away sheath. A [employer]-PICC 5 Israeli dual lumen central venous catheter was cut to appropriate length, then advanced through the sheath over the guidewire under direct fluoroscopic guidance into the superior vena cava. Guidewire and sheath were removed. Both catheter ports were aspirated, then flushed with heparinized saline. Final image was obtained. Catheter was secured the skin with adhesive dressing. Patient tolerated procedure well without immediate complications. Total fluoroscopy time: 0.3 minutes. Dose-area product: 8.1 dGy-cm2 Findings: Final image demonstrates tip of the central venous catheter at the level of superior vena cava-right atrial junction, 38 cm in from the skin. Both ports aspirate and flush freely. IMPRESSION: Placement of peripherally inserted central venous catheter via left basilic vein, working well.
[2017-02-27 12:14] VITALS: BP 116/59
[2017-02-27] MEDS: Cefepime HCl 2 GM in D5W 110 ML IV SCH (14:58)
--- NOTE | 2017-02-27 15:17 | Infectious Diseases Prog Note ---
Assessment/Plan Assessment/Plan ASSESSMENT: 81 y/o male with: // LLE bullous cellulitis - not significantly improved r/o deep infection - WCx NGTD - doppler(-) DVT // Leukocytosis - improved, afebrile // DM2 // EtOH abuse // NKDA // Full Code PLAN: - change IV vancomycin d#4 to daptomycin d# 1, continue cefepime d# 4 - check MRI r/o deep infection - f/u final cultures - monitor CBC, temperature - monitor BMP d/w family Subjective Allergies: Coded Allergies: No Known Allergies (Unverified , 02/24/17) Subjective remains afebrile received call from family concerned pt is not improving Objective Vital Signs Last 24 Hour Vital Signs Date Time Temp Pulse Resp B/P Pulse Ox O2 Delivery O2 Flow Rate FiO2 02/27/17 12:14 93.6 62 24 116/59 93 Room Air 02/27/17 08:39 65 114/49 02/27/17 08:39 65 114/49 02/27/17 08:15 98.3 65 29 129/67 94 Room Air 02/27/17 07:34 65 18 Room Air 21 02/27/17 04:00 98.7 63 20 114/49 95 Room Air 02/27/17 00:00 97.9 72 18 125/61 97 Room Air 02/26/17 20:19 62 18 Room Air 21 02/26/17 20:00 98.2 67 20 127/55 96 Room Air 02/26/17 16:04 97.7 63 20 132/70 94 Room Air Height (Feet): 5 Height (Inches): 5.00 Weight (Pounds): 150 General Appearance: no acute distress Respiratory/Chest: no respiratory distress Cardiovascular: normal rate, regular rhythm Abdomen: normal bowel sounds, soft, non tender, non distended Microbiology Date/Time Source Procedure Growth Status 02/26/17 13:15 Leg Left Gram Stain - Final Resulted 02/26/17 13:15 Leg Left Wound Culture - Preliminary NO GROWTH AFTER 24 HOURS Resulted Laboratory Tests Test 02/27/17 04:55 White Blood Count 12.0 K/UL (4.8-10.8) H Red Blood Count 3.94 M/UL (4.70-6.10) L Hemoglobin 11.8 G/DL (14.2-18.0) L Hematocrit 36.8 % (42.0-52.0) L Mean Corpuscular Volume 93 FL (80-99) Mean Corpuscular Hemoglobin 30.0 PG (27.0-31.0) Mean Corpuscular Hemoglobin Concent 32.1 G/DL (32.0-36.0) Red Cell Distribution Width 12.3 % (11.6-14.8) Platelet Count 280 K/UL (150-450) Mean Platelet Volume 6.8 FL (6.5-10.1) Neutrophils (%) (Auto) 67.7 % (45.0-75.0) Lymphocytes (%) (Auto) 16.3 % (20.0-45.0) L Monocytes (%) (Auto) 11.1 % (1.0-10.0) H Eosinophils (%) (Auto) 3.6 % (0.0-3.0) H Basophils (%) (Auto) 1.3 % (0.0-2.0) Sodium Level 141 mEQ/L (135-145) Potassium Level 3.8 mEQ/L (3.4-4.9) Chloride Level 102 mEQ/L (98-107) Carbon Dioxide Level 28 mEQ/L (20-30) Anion Gap 11 (5-15) Blood Urea Nitrogen 25 mg/dL (7-23) H Creatinine 1.0 mg/dL (0.7-1.2) Estimat Glomerular Filtration Rate mL/min (>60) Glucose Level 138 mg/dL (74-106) H Calcium Level 8.6 mg/dL (8.6-10.2) Phosphorus Level 3.1 mg/dL (2.5-4.8) Magnesium Level 2.0 mg/dL (1.7-2.5) Total Bilirubin 0.6 mg/dL (0.0-1.2) Aspartate Amino Transf (AST/SGOT) 11 U/L (5-40) Alanine Aminotransferase (ALT/SGPT) 9 U/L (3-41) Alkaline Phosphatase 51 U/L (40-129) Total Protein 6.5 g/dL (6.6-8.7) L Albumin 2.6 g/dL (3.5-5.2) L Globulin 3.9 g/dL Albumin/Globulin Ratio 0.6 (1.0-2.7) L Vancomycin Level Trough 2.9 ug/mL (5.0-12.0) L Current Medications Medications (Trade) Dose Ordered Sig/Mariusz Route PRN Reason Start Time Stop Time Status Last Admin Dose Admin Acetaminophen (Tylenol) 650 mg Q4H PRN ORAL fever 02/24/17 11:45 03/26/17 11:44 Albuterol/ Ipratropium 3 ml 3 ml EVERY 4 HOURS PRN HHN Shortness of Breath 02/24/17 11:45 03/01/17 11:44 Amlodipine Besylate (Norvasc) 5 mg DAILY ORAL 02/24/17 18:00 03/26/17 17:59 02/27/17 08:39 Atenolol (Tenormin) 50 mg DAILY ORAL 02/24/17 14:30 03/26/17 14:29 02/27/17 08:39 Cefepime HCl/ Dextrose (Maxipime/D5W) 110 ml @ 220 mls/hr Q24H IV 02/24/17 15:00 03/03/17 14:59 02/27/17 14:58 Chlorhexidine Gluconate 1 applic 1 applic QHS TOPIC 02/26/17 21:00 03/28/17 20:59 Dextrose (Dextrose 50%) STAT PRN IV Hypoglycemia 02/24/17 11:45 03/26/17 11:44 Heparin Sodium (Porcine) (Heparin 5000 units/ml) 5,000 units EVERY 12 HOURS SUBQ 02/24/17 21:00 03/26/17 20:59 02/26/17 20:38 Insulin Aspart (NovoLOG) BEFORE MEALS AND HS SUBQ 02/24/17 16:30 03/26/17 16:29 02/27/17 12:23 Lidocaine HCl (Xylocaine 1% 30ml) 30 ml ONCE INJ 02/27/17 08:30 02/28/17 23:59 Morphine Sulfate (Morphine Sulfate) 2 mg EVERY 4 HOURS PRN IVP Moderate Pain (Pain Scale 4-6) 02/24/17 11:45 03/03/17 11:44 02/27/17 08:39 Nitroglycerin (Ntg) 0.4 mg Q5M PRN SL Prn Chest Pain 02/24/17 11:45 03/26/17 11:44 Ondansetron HCl (Zofran) 4 mg Q6H PRN IVP Nausea & Vomiting 02/24/17 11:45 03/26/17 11:44 Polyethylene Glycol (Miralax) 17 gm DAILYPRN PRN ORAL Constipation 02/24/17 11:45 03/26/17 11:44 02/26/17 17:47 Tamsulosin HCl (Flomax) 0.4 mg BEDTIME ORAL 02/24/17 21:00 03/26/17 20:59 02/26/17 20:39 Temazepam (Restoril) 15 mg HSPRN PRN ORAL Insomnia 02/24/17 11:45 03/03/17 11:44 Vancomycin HCl/ Dextrose (Vancomycin 1250mg/D5W 250ml) 250 ml @ 166.667 mls/hr Q12H IVPB 02/27/17 18:00 03/04/17 17:59 ARNEL GRIFFITH Feb 27, 2017 15:17
[2017-02-27 15:57] VITALS: BP 126/63
[2017-02-27] MEDS ORDERED: Tubing IV Secondary IV ONE (17:19)
[2017-02-27] MEDS ORDERED: NS 275ml ONE (17:19)
[2017-02-27] MEDS: DAPTOmycin 250 MG in NS 55 ML IV SCH (17:47)
[2017-02-27] MEDS ORDERED: Vancomycin 1250mg/D5W 250ml IVPB SCH (18:00)
--- NOTE | 2017-02-27 19:12 | Pulmonology Progress Note ---
Assessment/Plan Problems: (1) Sepsis (2) ATN (acute tubular necrosis) (3) Cellulitis (4) HTN (hypertension) (5) Diabetes mellitus Assessment/Plan iv antibioitcs check cultures dvt prophylaxis check cbc/ wbc f/u clinically all noted picc line idone awaiting MRI results with possible dc home with IV antibiotics Subjective ROS Limited/Unobtainable: No Interval Events: feeling better Allergies: Coded Allergies: No Known Allergies (Unverified , 02/24/17) Objective Last 24 Hour Vital Signs Date Time Temp Pulse Resp B/P Pulse Ox O2 Delivery O2 Flow Rate FiO2 02/27/17 15:57 97.2 69 18 126/63 95 Room Air 02/27/17 12:14 93.6 62 24 116/59 93 Room Air 02/27/17 08:39 65 114/49 02/27/17 08:39 65 114/49 02/27/17 08:15 98.3 65 29 129/67 94 Room Air 02/27/17 07:34 65 18 Room Air 21 02/27/17 04:00 98.7 63 20 114/49 95 Room Air 02/27/17 00:00 97.9 72 18 125/61 97 Room Air 02/26/17 20:19 62 18 Room Air 21 02/26/17 20:00 98.2 67 20 127/55 96 Room Air Intake and Output 02/26/17 02/27/17 19:00 07:00 Intake Total 1190 ml Balance 1190 ml Intake Oral 1080 ml IV Total 110 ml # Voids 5 3 # Bowel Movements 1 Objective improivng General Appearance: WD/WN HEENT: normocephalic, atraumatic Respiratory/Chest: chest wall non-tender, lungs clear Cardiovascular: normal peripheral pulses, normal rate Abdomen: normal bowel sounds, soft, non tender Extremities: no cyanosis, no clubbing, less redness General Appearance: WD/WN HEENT: normocephalic, atraumatic Microbiology Date/Time Source Procedure Growth Status 02/26/17 13:15 Leg Left Gram Stain - Final Resulted 02/26/17 13:15 Leg Left Wound Culture - Preliminary NO GROWTH AFTER 24 HOURS Resulted Laboratory Tests 02/27/17 04:55: White Blood Count 12.0H, Red Blood Count 3.94L, Hemoglobin 11.8L, Hematocrit 36.8L, Mean Corpuscular Volume 93, Mean Corpuscular Hemoglobin 30.0, Mean Corpuscular Hemoglobin Concent 32.1, Red Cell Distribution Width 12.3, Platelet Count 280, Mean Platelet Volume 6.8, Neutrophils (%) (Auto) 67.7, Lymphocytes (% ) (Auto) 16.3L, Monocytes (%) (Auto) 11.1H, Eosinophils (%) (Auto) 3.6H, Basophils (%) (Auto) 1.3, Sodium Level 141, Potassium Level 3.8, Chloride Level 102, Carbon Dioxide Level 28, Anion Gap 11, Blood Urea Nitrogen 25H, Creatinine 1.0, Estimat Glomerular Filtration Rate , Glucose Level 138H, Calcium Level 8.6 , Phosphorus Level 3.1, Magnesium Level 2.0, Total Bilirubin 0.6, Aspartate Amino Transf (AST/SGOT) 11, Alanine Aminotransferase (ALT/SGPT) 9, Alkaline Phosphatase 51, Total Protein 6.5L, Albumin 2.6L, Globulin 3.9, Albumin/ Globulin Ratio 0.6L, Vancomycin Level Trough 2.9L Current Medications Medications (Trade) Dose Ordered Sig/Mariusz Route PRN Reason Start Time Stop Time Status Last Admin Dose Admin Acetaminophen (Tylenol) 650 mg Q4H PRN ORAL fever 02/24/17 11:45 03/26/17 11:44 Albuterol/ Ipratropium 3 ml 3 ml EVERY 4 HOURS PRN HHN Shortness of Breath 02/24/17 11:45 03/01/17 11:44 Amlodipine Besylate (Norvasc) 5 mg DAILY ORAL 02/24/17 18:00 03/26/17 17:59 02/27/17 08:39 Atenolol (Tenormin) 50 mg DAILY ORAL 02/24/17 14:30 03/26/17 14:29 02/27/17 08:39 Cefepime HCl/ Dextrose (Maxipime/D5W) 110 ml @ 220 mls/hr Q24H IV 02/24/17 15:00 03/03/17 14:59 02/27/17 14:58 Chlorhexidine Gluconate (Tanisha-Hex 2%) 1 applic QHS TOPIC 02/26/17 21:00 03/28/17 20:59 Daptomycin/Sodium Chloride (Cubicin/Sodium Chloride) 55 ml @ 100 mls/hr Q24H IV 02/27/17 17:00 03/06/17 16:59 02/27/17 17:47 Dextrose (Dextrose 50%) STAT PRN IV Hypoglycemia 02/24/17 11:45 03/26/17 11:44 Heparin Sodium (Porcine) (Heparin 5000 units/ml) 5,000 units EVERY 12 HOURS SUBQ 02/24/17 21:00 03/26/17 20:59 02/26/17 20:38 Insulin Aspart (NovoLOG) BEFORE MEALS AND HS SUBQ 02/24/17 16:30 03/26/17 16:29 02/27/17 17:47 Lidocaine HCl 30 ml 30 ml ONCE INJ 02/27/17 08:30 02/28/17 23:59 Morphine Sulfate (Morphine Sulfate) 2 mg EVERY 4 HOURS PRN IVP Moderate Pain (Pain Scale 4-6) 02/24/17 11:45 03/03/17 11:44 02/27/17 08:39 Nitroglycerin (Ntg) 0.4 mg Q5M PRN SL Prn Chest Pain 02/24/17 11:45 03/26/17 11:44 Ondansetron HCl (Zofran) 4 mg Q6H PRN IVP Nausea & Vomiting 02/24/17 11:45 03/26/17 11:44 Polyethylene Glycol (Miralax) 17 gm DAILYPRN PRN ORAL Constipation 02/24/17 11:45 03/26/17 11:44 02/26/17 17:47 Tamsulosin HCl (Flomax) 0.4 mg BEDTIME ORAL 02/24/17 21:00 03/26/17 20:59 02/26/17 20:39 Temazepam (Restoril) 15 mg HSPRN PRN ORAL Insomnia 02/24/17 11:45 03/03/17 11:44 SHANE GALINDO Feb 27, 2017 19:12
[2017-02-27 20:16] VITALS: BP 110/53
[2017-02-27] MEDS: Tamsulosin 0.4mg cap ORAL SCH (21:07)
[2017-02-27] MEDS: Dyna-Hex 2% Top Sol 8oz TOPIC SCH (21:11)
[2017-02-28 00:05] VITALS: BP 120/70
[2017-02-28 04:13] VITALS: BP 130/65
[2017-02-28] MEDS: NovoLOG Insulin Flexpen SUBQ SCH ×4 (05:51→21:16)
[2017-02-28] MEDS: Lidocaine 1% Plain 30 ml INJ SCH (07:11)
[2017-02-28 07:52] LABS: BASOPHILS % (AUTO) 1.7 % (0.0-2.0); EOSINOPHILS % (AUTO) 3.3 % (0.0-3.0); LYMPHOCYTES % (AUTO) 18.7 % (20.0-45.0); MEAN CORPUSCULAR HEMOGLOBIN 31.1 PG (27.0-31.0); MEAN CORPUSCULAR VOLUME 94 FL (80-99); MEAN PLATELET VOLUME 7.2 FL (6.5-10.1); MONOCYTES % (AUTO) 11.9 % (1.0-10.0); NEUTROPHILS % (AUTO) 64.4 % (45.0-75.0); PLATELET COUNT 287 K/UL (150-450); RED BLOOD COUNT 3.75 M/UL (4.70-6.10); RED CELL DISTRIBUTION WIDTH 12.4 % (11.6-14.8); WHITE BLOOD COUNT 10.8 K/UL (4.8-10.8)
[2017-02-28 08:04] LABS: ALANINE AMINOTRANSFERASE 12 U/L (3-41); ALBUMIN/GLOBULIN RATIO 0.7 (1.0-2.7); ANION GAP 11 (5-15); ASPARTATE AMINO TRANSFERASE 17 U/L (5-40); CALCIUM 8.4 mg/dL (8.6-10.2); CARBON DIOXIDE 27 mEQ/L (20-30); CHLORIDE 103 mEQ/L (98-107); CREATININE 1.1 mg/dL (0.7-1.2); CRP QUANT 11.5 mg/dL (< 0.5); HEMOLYSIS 3; MAGNESIUM 2.2 mg/dL (1.7-2.5); PHOSPHORUS 3.8 mg/dL (2.5-4.8); POTASSIUM 3.9 mEQ/L (3.4-4.9); SODIUM 141 mEQ/L (135-145); TOTAL PROTEIN 6.5 g/dL (6.6-8.7)
[2017-02-28 08:29] VITALS: BP 118/55
[2017-02-28] MEDS: Heparin 5000 units/ml inj SUBQ SCH ×2 (08:47→21:00)
[2017-02-28 09:18] LABS: ERYTHROCYTE SEDIMENTATION RATE 95 MM/HR (0-30)
--- NOTE | 2017-02-28 10:35 | Diagnostic Imaging Report ---
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 Precontrast axial T1 fat-saturated, post contrast axial and coronal T1 fat-saturated images obtained of the lower leg. Comparison: None Findings: A marker denotes the location of a soft tissue in the posterior lateral upper ankle. No definite abnormality corresponding to the ulcer is demonstrated on the available images. The osseous marrow signal is normal. There is generalized edema of the subcutaneous fat of the leg, which is overall circumferential. No focal drainable fluid collections are demonstrated on the STIR images. However, there is an irregularly-shaped nonenhancing area within the subcutaneous fat posterolateral to the distal fibula which measures 2.6 mm maximal AP dimension, up to 7 mm in thickness, and extends approximately 5 cm craniocaudad. This is probably a complex multiloculated collection, although the possibility of multiple small collections also persists. There is generalized enhancement of the subcutaneous fat of the distal leg circumferentially, which corresponds to the STIR abnormality. No evidence of muscular edema or unusual muscular enhancement. Small amount of joint fluid is noted within the ankle. Impression: Evidence of small irregular abscess within the the posterior lateral subcutaneous fat of the distal leg/upper ankle, as described Evidence of superficial soft tissue cellulitis No evidence of osteomyelitis Findings discussed by phone with Dr. Jackson at the time of interpretation
[2017-02-28] MEDS: Morphine Sulfate 2mg/ml Inj IVP PRN ×3 (10:40→21:01)
[2017-02-28 12:00] VITALS: BP 133/67
--- NOTE | 2017-02-28 12:11 | Infectious Diseases Prog Note ---
Assessment/Plan Assessment/Plan ASSESSMENT: 81 y/o male with: // LLE abscess / cellulitis - WCx NGTD - MRI: Evidence of small irregular abscess within the the posterior lateral subcutaneous fat of the distal leg/upper ankle. Evidence of superficial soft tissue cellulitis. No evidence of osteomyelitis - doppler(-) DVT // Leukocytosis - improved, afebrile // DM2 // EtOH abuse // NKDA // Full Code PLAN: - continue daptomycin d# 2, cefepime d# 5. Will need IV ABX at discharge given severity of infection ( 02/27 SP IV vancomycin d#4 ) - recommend I&D - f/u final cultures - monitor CBC, temperature - monitor BMP Subjective Allergies: Coded Allergies: No Known Allergies (Unverified , 02/24/17) Subjective remains afebrile MRI noted Objective Vital Signs Last 24 Hour Vital Signs Date Time Temp Pulse Resp B/P Pulse Ox O2 Delivery O2 Flow Rate FiO2 02/28/17 11:10 97.2 02/28/17 08:46 63 118/55 02/28/17 08:45 63 118/55 02/28/17 08:29 97.2 63 20 118/55 95 Room Air 02/28/17 07:20 72 18 Room Air 21 02/28/17 04:13 97.9 67 17 130/65 91 Room Air 02/28/17 00:05 97.2 70 18 120/70 94 Room Air 02/27/17 20:16 97.5 68 18 110/53 93 Room Air 02/27/17 19:10 69 18 Room Air 21 02/27/17 15:57 97.2 69 18 126/63 95 Room Air 02/27/17 12:14 93.6 62 24 116/59 93 Room Air Height (Feet): 5 Height (Inches): 5.00 Weight (Pounds): 150 General Appearance: no acute distress Respiratory/Chest: no respiratory distress Cardiovascular: normal rate, regular rhythm Abdomen: normal bowel sounds, soft, non tender, non distended Microbiology Date/Time Source Procedure Growth Status 02/26/17 13:15 Leg Left Gram Stain - Final Resulted 02/26/17 13:15 Leg Left Wound Culture - Preliminary NO GROWTH AFTER 48 HOURS Resulted Laboratory Tests Test 02/28/17 05:00 White Blood Count 10.8 K/UL (4.8-10.8) Red Blood Count 3.75 M/UL (4.70-6.10) L Hemoglobin 11.7 G/DL (14.2-18.0) L Hematocrit 35.4 % (42.0-52.0) L Mean Corpuscular Volume 94 FL (80-99) Mean Corpuscular Hemoglobin 31.1 PG (27.0-31.0) H Mean Corpuscular Hemoglobin Concent 33.0 G/DL (32.0-36.0) Red Cell Distribution Width 12.4 % (11.6-14.8) Platelet Count 287 K/UL (150-450) Mean Platelet Volume 7.2 FL (6.5-10.1) Neutrophils (%) (Auto) 64.4 % (45.0-75.0) Lymphocytes (%) (Auto) 18.7 % (20.0-45.0) L Monocytes (%) (Auto) 11.9 % (1.0-10.0) H Eosinophils (%) (Auto) 3.3 % (0.0-3.0) H Basophils (%) (Auto) 1.7 % (0.0-2.0) Erythrocyte Sedimentation Rate 95 MM/HR (0-30) H Sodium Level 141 mEQ/L (135-145) Potassium Level 3.9 mEQ/L (3.4-4.9) Chloride Level 103 mEQ/L (98-107) Carbon Dioxide Level 27 mEQ/L (20-30) Anion Gap 11 (5-15) Blood Urea Nitrogen 25 mg/dL (7-23) H Creatinine 1.1 mg/dL (0.7-1.2) Estimat Glomerular Filtration Rate mL/min (>60) Glucose Level 126 mg/dL (74-106) H Hemoglobin A1c 5.0 % (< 6.0) Calcium Level 8.4 mg/dL (8.6-10.2) L Phosphorus Level 3.8 mg/dL (2.5-4.8) Magnesium Level 2.2 mg/dL (1.7-2.5) Total Bilirubin 0.5 mg/dL (0.0-1.2) Aspartate Amino Transf (AST/SGOT) 17 U/L (5-40) Alanine Aminotransferase (ALT/SGPT) 12 U/L (3-41) Alkaline Phosphatase 56 U/L (40-129) C-Reactive Protein, Quantitative 11.5 mg/dL (< 0.5) H Total Protein 6.5 g/dL (6.6-8.7) L Albumin 2.8 g/dL (3.5-5.2) L Globulin 3.7 g/dL Albumin/Globulin Ratio 0.7 (1.0-2.7) L Current Medications Medications (Trade) Dose Ordered Sig/Mariusz Route PRN Reason Start Time Stop Time Status Last Admin Dose Admin Acetaminophen (Tylenol) 650 mg Q4H PRN ORAL fever 02/24/17 11:45 03/26/17 11:44 Albuterol/ Ipratropium 3 ml 3 ml EVERY 4 HOURS PRN HHN Shortness of Breath 02/24/17 11:45 03/01/17 11:44 Amlodipine Besylate (Norvasc) 5 mg DAILY ORAL 02/24/17 18:00 03/26/17 17:59 02/28/17 08:45 Atenolol (Tenormin) 50 mg DAILY ORAL 02/24/17 14:30 03/26/17 14:29 02/28/17 08:46 Cefepime HCl/ Dextrose (Maxipime/D5W) 110 ml @ 220 mls/hr Q24H IV 02/24/17 15:00 03/03/17 14:59 02/27/17 14:58 Chlorhexidine Gluconate (Tanisha-Hex 2%) 1 applic QHS TOPIC 02/26/17 21:00 03/28/17 20:59 02/27/17 21:11 Daptomycin/Sodium Chloride (Cubicin/Sodium Chloride) 55 ml @ 100 mls/hr Q24H IV 02/27/17 17:00 03/06/17 16:59 02/27/17 17:47 Dextrose (Dextrose 50%) STAT PRN IV Hypoglycemia 02/24/17 11:45 03/26/17 11:44 Heparin Sodium (Porcine) (Heparin 5000 units/ml) 5,000 units EVERY 12 HOURS SUBQ 02/24/17 21:00 03/26/17 20:59 02/28/17 08:47 Insulin Aspart (NovoLOG) BEFORE MEALS AND HS SUBQ 02/24/17 16:30 03/26/17 16:29 02/28/17 11:41 Lidocaine HCl 30 ml 30 ml ONCE INJ 02/27/17 08:30 02/28/17 23:59 Morphine Sulfate (Morphine Sulfate) 2 mg EVERY 4 HOURS PRN IVP Moderate Pain (Pain Scale 4-6) 02/24/17 11:45 03/03/17 11:44 02/28/17 10:40 Nitroglycerin (Ntg) 0.4 mg Q5M PRN SL Prn Chest Pain 02/24/17 11:45 03/26/17 11:44 Ondansetron HCl (Zofran) 4 mg Q6H PRN IVP Nausea & Vomiting 02/24/17 11:45 03/26/17 11:44 Polyethylene Glycol (Miralax) 17 gm DAILYPRN PRN ORAL Constipation 02/24/17 11:45 03/26/17 11:44 02/26/17 17:47 Tamsulosin HCl (Flomax) 0.4 mg BEDTIME ORAL 02/24/17 21:00 03/26/17 20:59 02/27/17 21:07 Temazepam (Restoril) 15 mg HSPRN PRN ORAL Insomnia 02/24/17 11:45 03/03/17 11:44 ARNEL GRIFFITH Feb 28, 2017 12:11
[2017-02-28] MEDS ORDERED: Lidocaine 2% 20mg/ml/Epi 0.005mg/ml 20ml vial INJ ONE (13:00)
--- NOTE | 2017-02-28 13:38 | Operative Note - PDOC ---
Operative Note Operative Note Date of Operation/Procedure: Feb 28, 2017 Pre-op Diagnosis: left leg abscess/ cellulitis Procedure: incision and drainage of left leg abscess Post-op Diagnosis: same as pre-op Surgeon: ron Anesthesia: local Specimen: none Complications: none Condition: stable Estimated Blood Loss: minimal Drains: none Implant(s) used?: No Indications for Procedure 81 year old male currently admitted for left leg infection with cellulitis. MRI performed to evaluate wound and noted to have fluid collection in distal left leg laterally around area of cellulitis. Surgery called to evaluated. Area of fluctuance palpated on exam and tender with surround cellulitis. Recommend I&D. Risks, benefits, and alteratives discussed with patient. consent obtained. Description of Procedure patient made comfortable in hospital bed. left leg cleaned. 2%lido with epi infiltrated in proposed skin incision site. #11 scalpel used to make small 1cm incision over area of fluctuance. 5cc of serosang fluid evacuated. minimal debris and no sign of deep infection or loculated abscess. wound irrigated and then packed. dressings applied. patient tolerated well. will need to keep leg elevated. wound changes bid with packing and dressings. continue Abx. Jimenez Villagomez Feb 28, 2017 13:38
[2017-02-28] MEDS: Cefepime HCl 2 GM in D5W 110 ML IV SCH (15:20)
[2017-02-28 16:00] VITALS: BP 137/77
[2017-02-28] MEDS: DAPTOmycin 250 MG in NS 55 ML IV SCH (17:56)
[2017-02-28 20:00] VITALS: BP 143/65
--- NOTE | 2017-02-28 20:04 | Pulmonology Progress Note ---
Assessment/Plan Problems: (1) Sepsis (2) ATN (acute tubular necrosis) (3) Cellulitis (4) HTN (hypertension) (5) Diabetes mellitus Assessment/Plan iv antibioitcs check cultures dvt prophylaxis check cbc/ wbc f/u clinically all noted picc line idone MRI results noted d/w surgery about draining of the abscess, done Subjective ROS Limited/Unobtainable: No Allergies: Coded Allergies: No Known Allergies (Unverified , 02/24/17) Objective Last 24 Hour Vital Signs Date Time Temp Pulse Resp B/P Pulse Ox O2 Delivery O2 Flow Rate FiO2 02/28/17 16:21 97.3 02/28/17 16:00 97.9 72 20 137/77 94 Room Air 02/28/17 12:00 97.3 68 22 133/67 95 Room Air 02/28/17 08:46 63 118/55 02/28/17 08:45 63 118/55 02/28/17 08:29 97.2 63 20 118/55 95 Room Air 02/28/17 07:20 72 18 Room Air 21 02/28/17 04:13 97.9 67 17 130/65 91 Room Air 02/28/17 00:05 97.2 70 18 120/70 94 Room Air 02/27/17 20:16 97.5 68 18 110/53 93 Room Air Intake and Output 02/27/17 02/28/17 19:00 07:00 Intake Total 405 ml 240 ml Output Total 570 ml Balance 405 ml -330 ml Intake Oral 240 ml 240 ml IV Total 165 ml Output Urine Total 570 ml # Voids 2 Objective improivng General Appearance: WD/WN HEENT: normocephalic, atraumatic Respiratory/Chest: chest wall non-tender, lungs clear Cardiovascular: normal peripheral pulses, normal rate Abdomen: normal bowel sounds, soft, non tender Extremities: no cyanosis, no clubbing, less redness clean dressing on left leg Microbiology Date/Time Source Procedure Growth Status 02/26/17 13:15 Leg Left Gram Stain - Final Resulted 02/26/17 13:15 Leg Left Wound Culture - Preliminary NO GROWTH AFTER 48 HOURS Resulted Laboratory Tests 02/28/17 05:00: White Blood Count 10.8, Red Blood Count 3.75L, Hemoglobin 11.7L, Hematocrit 35.4L, Mean Corpuscular Volume 94, Mean Corpuscular Hemoglobin 31.1H, Mean Corpuscular Hemoglobin Concent 33.0, Red Cell Distribution Width 12.4, Platelet Count 287, Mean Platelet Volume 7.2, Neutrophils (%) (Auto) 64.4, Lymphocytes (% ) (Auto) 18.7L, Monocytes (%) (Auto) 11.9H, Eosinophils (%) (Auto) 3.3H, Basophils (%) (Auto) 1.7, Erythrocyte Sedimentation Rate 95H, Sodium Level 141, Potassium Level 3.9, Chloride Level 103, Carbon Dioxide Level 27, Anion Gap 11, Blood Urea Nitrogen 25H, Creatinine 1.1, Estimat Glomerular Filtration Rate , Glucose Level 126H, Hemoglobin A1c 5.0, Calcium Level 8.4L, Phosphorus Level 3.8 , Magnesium Level 2.2, Total Bilirubin 0.5, Aspartate Amino Transf (AST/SGOT) 17 , Alanine Aminotransferase (ALT/SGPT) 12, Alkaline Phosphatase 56, C-Reactive Protein, Quantitative 11.5H, Total Protein 6.5L, Albumin 2.8L, Globulin 3.7, Albumin/Globulin Ratio 0.7L Current Medications Medications (Trade) Dose Ordered Sig/Mariusz Route PRN Reason Start Time Stop Time Status Last Admin Dose Admin Acetaminophen (Tylenol) 650 mg Q4H PRN ORAL fever 02/24/17 11:45 03/26/17 11:44 Albuterol/ Ipratropium 3 ml 3 ml EVERY 4 HOURS PRN HHN Shortness of Breath 02/24/17 11:45 03/01/17 11:44 Amlodipine Besylate (Norvasc) 5 mg DAILY ORAL 02/24/17 18:00 03/26/17 17:59 02/28/17 08:45 Atenolol (Tenormin) 50 mg DAILY ORAL 02/24/17 14:30 03/26/17 14:29 02/28/17 08:46 Bacitracin 1 applic 1 applic Q12HR TOPIC 02/28/17 21:00 03/30/17 20:59 Cefepime HCl/ Dextrose (Maxipime/D5W) 110 ml @ 220 mls/hr Q24H IV 02/24/17 15:00 03/03/17 14:59 02/28/17 15:20 Chlorhexidine Gluconate (Tanisha-Hex 2%) 1 applic QHS TOPIC 02/26/17 21:00 03/28/17 20:59 02/27/17 21:11 Daptomycin/Sodium Chloride (Cubicin/Sodium Chloride) 55 ml @ 100 mls/hr Q24H IV 03/01/17 17:00 03/08/17 16:59 Dextrose (Dextrose 50%) STAT PRN IV Hypoglycemia 02/24/17 11:45 03/26/17 11:44 Heparin Sodium (Porcine) (Heparin 5000 units/ml) 5,000 units EVERY 12 HOURS SUBQ 02/24/17 21:00 03/26/17 20:59 02/28/17 08:47 Insulin Aspart (NovoLOG) BEFORE MEALS AND HS SUBQ 02/24/17 16:30 03/26/17 16:29 02/28/17 16:46 Lidocaine HCl (Xylocaine 1% 30ml) 30 ml ONCE INJ 02/27/17 08:30 02/28/17 23:59 Morphine Sulfate (Morphine Sulfate) 2 mg EVERY 4 HOURS PRN IVP Moderate Pain (Pain Scale 4-6) 02/24/17 11:45 03/03/17 11:44 02/28/17 15:51 Nitroglycerin (Ntg) 0.4 mg Q5M PRN SL Prn Chest Pain 02/24/17 11:45 03/26/17 11:44 Ondansetron HCl (Zofran) 4 mg Q6H PRN IVP Nausea & Vomiting 02/24/17 11:45 03/26/17 11:44 Polyethylene Glycol (Miralax) 17 gm DAILYPRN PRN ORAL Constipation 02/24/17 11:45 03/26/17 11:44 02/26/17 17:47 Tamsulosin HCl (Flomax) 0.4 mg BEDTIME ORAL 02/24/17 21:00 03/26/17 20:59 02/27/17 21:07 Temazepam (Restoril) 15 mg HSPRN PRN ORAL Insomnia 02/24/17 11:45 03/03/17 11:44 SHANE GALINDO Feb 28, 2017 20:03
[2017-02-28] MEDS: Bacitracin Oint UD TOPIC SCH (21:14)
[2017-02-28] MEDS: Dyna-Hex 2% Top Sol 8oz TOPIC SCH (21:14)
[2017-02-28] MEDS: Tamsulosin 0.4mg cap ORAL SCH (21:14)
[2017-03-01] VITALS: BP 130/61
[2017-03-01 04:00] VITALS: BP 132/65
[2017-03-01] MEDS: NovoLOG Insulin Flexpen SUBQ SCH ×4 (06:20→20:34)
[2017-03-01] MEDS: Bacitracin Oint UD TOPIC SCH ×2 (08:26→20:34)
[2017-03-01] MEDS: Heparin 5000 units/ml inj SUBQ SCH ×2 (08:30→20:33)
[2017-03-01 08:49] VITALS: BP 132/59
[2017-03-01 12:27] VITALS: BP 125/67
--- NOTE | 2017-03-01 13:41 | General Progress Note ---
Progress Note Progress Note Left lateral lower leg cellulitis, warm lower leg with lateral erythema, skin slough, no obvious abscess, s/p I&D with watery fluid, C&S pending Continue local care, elevation, Abx, etc. MARILIA HANKS Mar 01, 2017 13:40
[2017-03-01] MEDS: Cefepime HCl 2 GM in D5W 110 ML IV SCH (15:45)
[2017-03-01 16:00] VITALS: BP 128/57
[2017-03-01] MEDS ORDERED: Tubing IV Secondary IV ONE (16:35)
[2017-03-01] MEDS ORDERED: NS 275ml ONE (16:35)
--- NOTE | 2017-03-01 16:41 | Pulmonology Progress Note ---
Assessment/Plan Problems: (1) Sepsis (2) ATN (acute tubular necrosis) (3) Cellulitis (4) HTN (hypertension) (5) Diabetes mellitus Assessment/Plan iv antibioitcs check cultures dvt prophylaxis check cbc/ wbc f/u clinically all noted picc line idone MRI results noted d/w surgery about draining of the abscess, done dc probably in 2 days Subjective ROS Limited/Unobtainable: No Constitutional: Reports: no symptoms HEENT: Repors: no symptoms Respiratory: Reports: no symptoms Allergies: Coded Allergies: No Known Allergies (Unverified , 02/24/17) Objective Last 24 Hour Vital Signs Date Time Temp Pulse Resp B/P Pulse Ox O2 Delivery O2 Flow Rate FiO2 03/01/17 16:00 97.2 71 20 128/57 94 Room Air 03/01/17 12:27 97.0 65 19 125/67 95 Room Air 03/01/17 08:49 97.3 65 19 132/59 95 Room Air 03/01/17 08:26 68 132/65 03/01/17 08:26 68 132/65 03/01/17 07:30 68 18 Room Air 21 03/01/17 05:04 93 Room Air 03/01/17 04:00 98.1 70 20 132/65 Room Air 03/01/17 00:00 97.5 67 20 130/61 92 Room Air 02/28/17 21:31 97.3 02/28/17 20:00 98.2 68 20 143/65 93 Room Air 02/28/17 19:18 74 18 Room Air 21 Intake and Output 02/28/17 03/01/17 19:00 07:00 Intake Total 240 ml Output Total 200 ml 600 ml Balance -200 ml -360 ml Intake Oral 240 ml Output Urine Total 200 ml 600 ml # Voids 2 Objective improivng General Appearance: WD/WN HEENT: normocephalic, atraumatic Respiratory/Chest: chest wall non-tender, lungs clear Cardiovascular: normal peripheral pulses, normal rate Abdomen: normal bowel sounds, soft, non tender Extremities: no cyanosis, no clubbing, less redness clean dressing on left leg Current Medications Medications (Trade) Dose Ordered Sig/Mariusz Route PRN Reason Start Time Stop Time Status Last Admin Dose Admin Acetaminophen (Tylenol) 650 mg Q4H PRN ORAL fever 02/24/17 11:45 03/26/17 11:44 Amlodipine Besylate (Norvasc) 5 mg DAILY ORAL 02/24/17 18:00 03/26/17 17:59 03/01/17 08:26 Atenolol (Tenormin) 50 mg DAILY ORAL 02/24/17 14:30 03/26/17 14:29 03/01/17 08:26 Bacitracin 1 applic 1 applic Q12HR TOPIC 02/28/17 21:00 03/30/17 20:59 03/01/17 08:26 Cefepime HCl/ Dextrose (Maxipime/D5W) 110 ml @ 220 mls/hr Q24H IV 02/24/17 15:00 03/03/17 14:59 03/01/17 15:45 Chlorhexidine Gluconate (Tanisha-Hex 2%) 1 applic QHS TOPIC 02/26/17 21:00 03/28/17 20:59 02/28/17 21:14 Daptomycin/Sodium Chloride (Cubicin/Sodium Chloride) 55 ml @ 100 mls/hr Q24H IV 03/01/17 17:00 03/08/17 16:59 Dextrose (Dextrose 50%) STAT PRN IV Hypoglycemia 02/24/17 11:45 03/26/17 11:44 Heparin Sodium (Porcine) (Heparin 5000 units/ml) 5,000 units EVERY 12 HOURS SUBQ 02/24/17 21:00 03/26/17 20:59 03/01/17 08:30 Insulin Aspart (NovoLOG) BEFORE MEALS AND HS SUBQ 02/24/17 16:30 03/26/17 16:29 03/01/17 11:56 Morphine Sulfate (Morphine Sulfate) 2 mg EVERY 4 HOURS PRN IVP Moderate Pain (Pain Scale 4-6) 02/24/17 11:45 03/03/17 11:44 02/28/17 21:01 Nitroglycerin (Ntg) 0.4 mg Q5M PRN SL Prn Chest Pain 02/24/17 11:45 03/26/17 11:44 Ondansetron HCl (Zofran) 4 mg Q6H PRN IVP Nausea & Vomiting 02/24/17 11:45 03/26/17 11:44 Polyethylene Glycol (Miralax) 17 gm DAILYPRN PRN ORAL Constipation 02/24/17 11:45 03/26/17 11:44 02/26/17 17:47 Tamsulosin HCl 0.4 mg 0.4 mg BEDTIME ORAL 02/24/17 21:00 03/26/17 20:59 02/28/17 21:14 Temazepam (Restoril) 15 mg HSPRN PRN ORAL Insomnia 02/24/17 11:45 03/03/17 11:44 02/28/17 22:35 SHANE GALINDO Mar 01, 2017 16:41
[2017-03-01] MEDS: DAPTOmycin 300 MG in NS 55 ML IV SCH (16:48)
[2017-03-01 20:00] VITALS: BP 130/67
[2017-03-01] MEDS: Tamsulosin 0.4mg cap ORAL SCH (20:29)
[2017-03-01] MEDS: Dyna-Hex 2% Top Sol 8oz TOPIC SCH (20:34)
[2017-03-02] VITALS: BP 139/70
[2017-03-02 04:00] VITALS: BP 138/69
[2017-03-02] MEDS: NovoLOG Insulin Flexpen SUBQ SCH ×4 (06:40→21:00)
[2017-03-02 08:28] VITALS: BP 139/73
[2017-03-02] MEDS: Bacitracin Oint UD TOPIC SCH ×2 (08:59→21:24)
[2017-03-02] MEDS: Heparin 5000 units/ml inj SUBQ SCH ×2 (09:04→21:29)
--- NOTE | 2017-03-02 11:16 | Infectious Diseases Prog Note ---
Assessment/Plan Assessment/Plan A; Left leg cellulitis/ abscess DM HPN P; Continue Daptomycin & Cefepime Will f/u cultures Subjective ROS Limited/Unobtainable: No Constitutional: Reports: no symptoms Respiratory: Reports: no symptoms Cardiovascular: Reports: no symptoms Gastrointestinal/Abdominal: Reports: no symptoms Genitourinary: Reports: no symptoms Musculoskeletal: Reports: other - in left leg, pain Allergies: Coded Allergies: No Known Allergies (Unverified , 02/24/17) Objective Vital Signs Last 24 Hour Vital Signs Date Time Temp Pulse Resp B/P Pulse Ox O2 Delivery O2 Flow Rate FiO2 03/02/17 09:00 72 145/64 03/02/17 09:00 72 145/64 03/02/17 08:28 97.2 66 16 139/73 96 Room Air 03/02/17 04:00 97.7 64 20 138/69 95 Room Air 03/02/17 00:00 96.8 58 18 139/70 95 Room Air 03/01/17 22:19 98.9 03/01/17 20:44 72 18 Room Air 21 03/01/17 20:00 98.9 73 19 130/67 93 Room Air 03/01/17 16:00 97.2 71 20 128/57 94 Room Air 03/01/17 12:27 97.0 65 19 125/67 95 Room Air Height (Feet): 5 Height (Inches): 5.00 Weight (Pounds): 150 General Appearance: no acute distress HEENT: mucous membranes moist Respiratory/Chest: lungs clear Cardiovascular: normal rate Abdomen: soft, non tender Extremities: other - left leg edema, ulcer, left arm PICC line Current Medications Medications (Trade) Dose Ordered Sig/Mariusz Route PRN Reason Start Time Stop Time Status Last Admin Dose Admin Acetaminophen (Tylenol) 650 mg Q4H PRN ORAL fever 02/24/17 11:45 03/26/17 11:44 03/01/17 21:20 Amlodipine Besylate (Norvasc) 5 mg DAILY ORAL 02/24/17 18:00 03/26/17 17:59 03/02/17 09:00 Atenolol (Tenormin) 50 mg DAILY ORAL 02/24/17 14:30 03/26/17 14:29 03/02/17 09:00 Bacitracin 1 applic 1 applic Q12HR TOPIC 02/28/17 21:00 03/30/17 20:59 03/02/17 08:59 Cefepime HCl/ Dextrose (Maxipime/D5W) 110 ml @ 220 mls/hr Q24H IV 02/24/17 15:00 03/03/17 14:59 03/01/17 15:45 Chlorhexidine Gluconate (Tanisha-Hex 2%) 1 applic QHS TOPIC 02/26/17 21:00 03/28/17 20:59 03/01/17 20:34 Daptomycin/Sodium Chloride (Cubicin/Sodium Chloride) 55 ml @ 100 mls/hr Q24H IV 03/01/17 17:00 03/08/17 16:59 03/01/17 16:48 Dextrose (Dextrose 50%) STAT PRN IV Hypoglycemia 02/24/17 11:45 03/26/17 11:44 Heparin Sodium (Porcine) (Heparin 5000 units/ml) 5,000 units EVERY 12 HOURS SUBQ 02/24/17 21:00 03/26/17 20:59 03/02/17 09:04 Insulin Aspart (NovoLOG) BEFORE MEALS AND HS SUBQ 02/24/17 16:30 03/26/17 16:29 03/02/17 06:40 Morphine Sulfate (Morphine Sulfate) 2 mg EVERY 4 HOURS PRN IVP Moderate Pain (Pain Scale 4-6) 02/24/17 11:45 03/03/17 11:44 02/28/17 21:01 Nitroglycerin (Ntg) 0.4 mg Q5M PRN SL Prn Chest Pain 02/24/17 11:45 03/26/17 11:44 Ondansetron HCl (Zofran) 4 mg Q6H PRN IVP Nausea & Vomiting 02/24/17 11:45 03/26/17 11:44 Polyethylene Glycol (Miralax) 17 gm DAILYPRN PRN ORAL Constipation 02/24/17 11:45 03/26/17 11:44 02/26/17 17:47 Tamsulosin HCl 0.4 mg 0.4 mg BEDTIME ORAL 02/24/17 21:00 03/26/17 20:59 03/01/17 20:29 Temazepam (Restoril) 15 mg HSPRN PRN ORAL Insomnia 02/24/17 11:45 03/03/17 11:44 03/01/17 21:20 LOKESH RODRIGUES Mar 02, 2017 11:16
[2017-03-02 12:30] VITALS: BP 133/69
--- NOTE | 2017-03-02 13:24 | General Progress Note ---
Progress Note Progress Note Afebrile, lower leg- ankle inflammation sl decreased, wound clean, granulating. MARILIA HANKS Mar 02, 2017 13:24
--- NOTE | 2017-03-02 13:54 | Pulmonology Progress Note ---
Assessment/Plan Problems: (1) Sepsis (2) ATN (acute tubular necrosis) (3) Cellulitis (4) HTN (hypertension) (5) Diabetes mellitus Assessment/Plan iv antibioitcs check cultures dvt prophylaxis check cbc/ wbc f/u clinically picc line in place MRI results noted d/w surgery about draining of the abscess, done dc probably in 2 days Subjective ROS Limited/Unobtainable: No Constitutional: Reports: no symptoms HEENT: Repors: no symptoms Allergies: Coded Allergies: No Known Allergies (Unverified , 02/24/17) Objective Last 24 Hour Vital Signs Date Time Temp Pulse Resp B/P Pulse Ox O2 Delivery O2 Flow Rate FiO2 03/02/17 12:30 97.5 65 18 133/69 96 Room Air 03/02/17 09:00 72 145/64 03/02/17 09:00 72 145/64 03/02/17 08:28 97.2 66 16 139/73 96 Room Air 03/02/17 04:00 97.7 64 20 138/69 95 Room Air 03/02/17 00:00 96.8 58 18 139/70 95 Room Air 03/01/17 22:19 98.9 03/01/17 20:44 72 18 Room Air 21 03/01/17 20:00 98.9 73 19 130/67 93 Room Air 03/01/17 16:00 97.2 71 20 128/57 94 Room Air Intake and Output 03/01/17 03/02/17 19:00 07:00 Intake Total 360 ml 120 ml Balance 360 ml 120 ml Intake Oral 360 ml 120 ml # Voids 3 2 # Bowel Movements 1 Objective improivng General Appearance: WD/WN HEENT: normocephalic, atraumatic Respiratory/Chest: chest wall non-tender, lungs clear Cardiovascular: normal peripheral pulses, normal rate Abdomen: normal bowel sounds, soft, non tender Extremities: no cyanosis, no clubbing, less redness clean dressing on left leg Current Medications Medications (Trade) Dose Ordered Sig/Mariusz Route PRN Reason Start Time Stop Time Status Last Admin Dose Admin Acetaminophen (Tylenol) 650 mg Q4H PRN ORAL fever 02/24/17 11:45 03/26/17 11:44 03/01/17 21:20 Amlodipine Besylate (Norvasc) 5 mg DAILY ORAL 02/24/17 18:00 03/26/17 17:59 03/02/17 09:00 Atenolol (Tenormin) 50 mg DAILY ORAL 02/24/17 14:30 03/26/17 14:29 03/02/17 09:00 Bacitracin 1 applic 1 applic Q12HR TOPIC 02/28/17 21:00 03/30/17 20:59 03/02/17 08:59 Cefepime HCl/ Dextrose (Maxipime/D5W) 110 ml @ 220 mls/hr Q24H IV 02/24/17 15:00 03/03/17 14:59 03/01/17 15:45 Chlorhexidine Gluconate (Tanisha-Hex 2%) 1 applic QHS TOPIC 02/26/17 21:00 03/28/17 20:59 03/01/17 20:34 Daptomycin/Sodium Chloride (Cubicin/Sodium Chloride) 55 ml @ 100 mls/hr Q24H IV 03/01/17 17:00 03/08/17 16:59 03/01/17 16:48 Dextrose (Dextrose 50%) STAT PRN IV Hypoglycemia 02/24/17 11:45 03/26/17 11:44 Heparin Sodium (Porcine) (Heparin 5000 units/ml) 5,000 units EVERY 12 HOURS SUBQ 02/24/17 21:00 03/26/17 20:59 03/02/17 09:04 Insulin Aspart (NovoLOG) BEFORE MEALS AND HS SUBQ 02/24/17 16:30 03/26/17 16:29 03/02/17 11:35 Morphine Sulfate (Morphine Sulfate) 2 mg EVERY 4 HOURS PRN IVP Moderate Pain (Pain Scale 4-6) 02/24/17 11:45 03/03/17 11:44 02/28/17 21:01 Nitroglycerin (Ntg) 0.4 mg Q5M PRN SL Prn Chest Pain 02/24/17 11:45 03/26/17 11:44 Ondansetron HCl (Zofran) 4 mg Q6H PRN IVP Nausea & Vomiting 02/24/17 11:45 03/26/17 11:44 Polyethylene Glycol (Miralax) 17 gm DAILYPRN PRN ORAL Constipation 02/24/17 11:45 03/26/17 11:44 02/26/17 17:47 Tamsulosin HCl 0.4 mg 0.4 mg BEDTIME ORAL 02/24/17 21:00 03/26/17 20:59 03/01/17 20:29 Temazepam (Restoril) 15 mg HSPRN PRN ORAL Insomnia 02/24/17 11:45 03/03/17 11:44 03/01/17 21:20 SHANE GALINDO Mar 02, 2017 13:54
[2017-03-02] MEDS: Cefepime HCl 2 GM in D5W 110 ML IV SCH (15:40)
[2017-03-02 16:00] VITALS: BP 148/55
[2017-03-02] MEDS: DAPTOmycin 300 MG in NS 55 ML IV SCH (17:01)
[2017-03-02 20:00] VITALS: BP 133/59
[2017-03-02] MEDS: Tamsulosin 0.4mg cap ORAL SCH (21:24)
[2017-03-02] MEDS: Dyna-Hex 2% Top Sol 8oz TOPIC SCH (21:24)
[2017-03-02] MEDS: Morphine Sulfate 2mg/ml Inj IVP PRN (21:29)
[2017-03-03] VITALS: BP 135/65
[2017-03-03 04:00] VITALS: BP 142/70
[2017-03-03] MEDS: Morphine Sulfate 2mg/ml Inj IVP PRN (05:48)
[2017-03-03] MEDS: NovoLOG Insulin Flexpen SUBQ SCH ×2 (06:26→11:42)
[2017-03-03 06:53] LABS: BASOPHILS % (AUTO) 1.3 % (0.0-2.0); EOSINOPHILS % (AUTO) 3.8 % (0.0-3.0); LYMPHOCYTES % (AUTO) 24.2 % (20.0-45.0); MEAN CORPUSCULAR HEMOGLOBIN 31.8 PG (27.0-31.0); MEAN CORPUSCULAR HGB CONC 33.6 G/DL (32.0-36.0); MEAN CORPUSCULAR VOLUME 95 FL (80-99); MEAN PLATELET VOLUME 6.3 FL (6.5-10.1); MONOCYTES % (AUTO) 9.9 % (1.0-10.0); NEUTROPHILS % (AUTO) 60.8 % (45.0-75.0); PLATELET COUNT 317 K/UL (150-450); RED BLOOD COUNT 3.78 M/UL (4.70-6.10); RED CELL DISTRIBUTION WIDTH 12.6 % (11.6-14.8); WHITE BLOOD COUNT 9.2 K/UL (4.8-10.8)
[2017-03-03 07:28] LABS: ALANINE AMINOTRANSFERASE 14 U/L (3-41); ALBUMIN/GLOBULIN RATIO 0.7 (1.0-2.7); ANION GAP 11 (5-15); ASPARTATE AMINO TRANSFERASE 20 U/L (5-40); CALCIUM 8.7 mg/dL (8.6-10.2); CARBON DIOXIDE 28 mEQ/L (20-30); CHLORIDE 102 mEQ/L (98-107); HEMOLYSIS 3; MAGNESIUM 2.2 mg/dL (1.7-2.5); PHOSPHORUS 4.3 mg/dL (2.5-4.8); POTASSIUM 4.5 mEQ/L (3.4-4.9); SODIUM 141 mEQ/L (135-145)
[2017-03-03 08:00] VITALS: BP 148/72
[2017-03-03] MEDS: Bacitracin Oint UD TOPIC SCH (08:18)
[2017-03-03] MEDS: Heparin 5000 units/ml inj SUBQ SCH (08:24)
--- NOTE | 2017-03-03 09:28 | Infectious Diseases Prog Note ---
Assessment/Plan Assessment/Plan ASSESSMENT: 81 y/o male with: // LLE abscess / cellulitis - WCx NGTD, much improved after I&D - SP I&D 02/28 - MRI: Evidence of small irregular abscess within the the posterior lateral subcutaneous fat of the distal leg/upper ankle. Evidence of superficial soft tissue cellulitis. No evidence of osteomyelitis - doppler(-) DVT // Leukocytosis - resolved, afebrile // DM2 // EtOH abuse // NKDA // Full Code PLAN: - continue daptomycin d# 5, cefepime d# 8 ( ABX d# 8 / ). Ok to complete course with PO bactrim + keflex at discharge ( 02/27 SP IV vancomycin d#4 ) - f/u final cultures - monitor CBC, temperature - monitor BMP Subjective Allergies: Coded Allergies: No Known Allergies (Unverified , 02/24/17) Subjective remains afebrile without leukocytosis wound culture NGTD Objective Vital Signs Last 24 Hour Vital Signs Date Time Temp Pulse Resp B/P Pulse Ox O2 Delivery O2 Flow Rate FiO2 03/03/17 08:18 64 148/72 03/03/17 08:18 64 148/72 03/03/17 08:00 96.4 64 20 148/72 94 Room Air 03/03/17 04:00 98.0 60 18 142/70 96 Room Air 03/03/17 00:00 97.3 64 19 135/65 95 Room Air 03/02/17 20:00 98.6 69 19 133/59 95 Room Air 03/02/17 16:00 97.3 70 20 148/55 93 Room Air 03/02/17 12:30 97.5 65 18 133/69 96 Room Air Height (Feet): 5 Height (Inches): 5.00 Weight (Pounds): 150 General Appearance: no acute distress Respiratory/Chest: no respiratory distress Cardiovascular: normal rate, regular rhythm Abdomen: normal bowel sounds, soft, non tender, non distended Extremities: other - wound bandaged Laboratory Tests Test 03/03/17 04:50 White Blood Count 9.2 K/UL (4.8-10.8) Red Blood Count 3.78 M/UL (4.70-6.10) L Hemoglobin 12.0 G/DL (14.2-18.0) L Hematocrit 35.8 % (42.0-52.0) L Mean Corpuscular Volume 95 FL (80-99) Mean Corpuscular Hemoglobin 31.8 PG (27.0-31.0) H Mean Corpuscular Hemoglobin Concent 33.6 G/DL (32.0-36.0) Red Cell Distribution Width 12.6 % (11.6-14.8) Platelet Count 317 K/UL (150-450) Mean Platelet Volume 6.3 FL (6.5-10.1) L Neutrophils (%) (Auto) 60.8 % (45.0-75.0) Lymphocytes (%) (Auto) 24.2 % (20.0-45.0) Monocytes (%) (Auto) 9.9 % (1.0-10.0) Eosinophils (%) (Auto) 3.8 % (0.0-3.0) H Basophils (%) (Auto) 1.3 % (0.0-2.0) Sodium Level 141 mEQ/L (135-145) Potassium Level 4.5 mEQ/L (3.4-4.9) Chloride Level 102 mEQ/L (98-107) Carbon Dioxide Level 28 mEQ/L (20-30) Anion Gap 11 (5-15) Blood Urea Nitrogen 25 mg/dL (7-23) H Creatinine 1.0 mg/dL (0.7-1.2) Estimat Glomerular Filtration Rate mL/min (>60) Glucose Level 112 mg/dL (74-106) H Calcium Level 8.7 mg/dL (8.6-10.2) Phosphorus Level 4.3 mg/dL (2.5-4.8) Magnesium Level 2.2 mg/dL (1.7-2.5) Total Bilirubin 0.3 mg/dL (0.0-1.2) Aspartate Amino Transf (AST/SGOT) 20 U/L (5-40) Alanine Aminotransferase (ALT/SGPT) 14 U/L (3-41) Alkaline Phosphatase 44 U/L (40-129) Total Protein 7.0 g/dL (6.6-8.7) Albumin 3.0 g/dL (3.5-5.2) L Globulin 4.0 g/dL Albumin/Globulin Ratio 0.7 (1.0-2.7) L Current Medications Medications (Trade) Dose Ordered Sig/Mariusz Route PRN Reason Start Time Stop Time Status Last Admin Dose Admin Acetaminophen (Tylenol) 650 mg Q4H PRN ORAL fever 02/24/17 11:45 03/26/17 11:44 03/01/17 21:20 Amlodipine Besylate (Norvasc) 5 mg DAILY ORAL 02/24/17 18:00 03/26/17 17:59 03/03/17 08:18 Atenolol (Tenormin) 50 mg DAILY ORAL 02/24/17 14:30 03/26/17 14:29 03/03/17 08:18 Bacitracin 1 applic 1 applic Q12HR TOPIC 02/28/17 21:00 03/30/17 20:59 03/03/17 08:18 Cefepime HCl/ Dextrose (Maxipime/D5W) 110 ml @ 220 mls/hr Q24H IV 02/24/17 15:00 03/03/17 14:59 03/02/17 15:40 Chlorhexidine Gluconate (Tanisha-Hex 2%) 1 applic QHS TOPIC 02/26/17 21:00 03/28/17 20:59 03/02/17 21:24 Daptomycin/Sodium Chloride (Cubicin/Sodium Chloride) 55 ml @ 100 mls/hr Q24H IV 03/01/17 17:00 03/08/17 16:59 03/02/17 17:01 Dextrose (Dextrose 50%) STAT PRN IV Hypoglycemia 02/24/17 11:45 03/26/17 11:44 Heparin Sodium (Porcine) (Heparin 5000 units/ml) 5,000 units EVERY 12 HOURS SUBQ 02/24/17 21:00 03/26/17 20:59 03/03/17 08:24 Insulin Aspart (NovoLOG) BEFORE MEALS AND HS SUBQ 02/24/17 16:30 03/26/17 16:29 03/03/17 06:26 Morphine Sulfate (Morphine Sulfate) 2 mg EVERY 4 HOURS PRN IVP Moderate Pain (Pain Scale 4-6) 02/24/17 11:45 03/03/17 11:44 03/03/17 05:48 Nitroglycerin (Ntg) 0.4 mg Q5M PRN SL Prn Chest Pain 02/24/17 11:45 03/26/17 11:44 Ondansetron HCl (Zofran) 4 mg Q6H PRN IVP Nausea & Vomiting 02/24/17 11:45 03/26/17 11:44 Polyethylene Glycol (Miralax) 17 gm DAILYPRN PRN ORAL Constipation 02/24/17 11:45 03/26/17 11:44 02/26/17 17:47 Tamsulosin HCl 0.4 mg 0.4 mg BEDTIME ORAL 02/24/17 21:00 03/26/17 20:59 03/02/17 21:24 Temazepam (Restoril) 15 mg HSPRN PRN ORAL Insomnia 02/24/17 11:45 03/03/17 11:44 03/01/17 21:20 ARNEL GRIFFITH Mar 03, 2017 09:28
[2017-03-03] MEDS ORDERED: BACTRIM-DS1 EA ORAL (10:20)
[2017-03-03] MEDS ORDERED: CEPHALEXIN500 MG ORAL (10:20)
--- NOTE | 2017-03-03 10:55 | General Progress Note ---
Progress Note Progress Note Surgery: patient seen and examined at bedside. doing well. no complaints. no n/v/f/c. comfortable. pain improved. afebrile, HD stable, labs okay. left leg cellulitis significantly improved. minimal edema. good pulses. wounds healing very well. okay to shower dressings until open areas dry and healed okay to d/c from surgical standpoint follow up with me in 1-2 weeks post discharge. Jimenez Villagomez Mar 03, 2017 10:55
[2017-03-03 12:00] VITALS: BP 141/74
--- NOTE | 2017-03-03 14:42 | Pulmonology Progress Note ---
Assessment/Plan Problems: (1) Sepsis (2) ATN (acute tubular necrosis) (3) Cellulitis (4) HTN (hypertension) (5) Diabetes mellitus Assessment/Plan improving check cultures dvt prophylaxis check cbc/ wbc f/u clinically d/w surgery about draining of the abscess, done dc today with abx as recommended by ID wound care and HH arranged as requested by family members. Subjective ROS Limited/Unobtainable: No Constitutional: Reports: no symptoms HEENT: Repors: no symptoms Respiratory: Reports: no symptoms Allergies: Coded Allergies: No Known Allergies (Unverified , 02/24/17) Objective Last 24 Hour Vital Signs Date Time Temp Pulse Resp B/P Pulse Ox O2 Delivery O2 Flow Rate FiO2 03/03/17 12:00 96.6 56 16 141/74 95 Room Air 03/03/17 08:18 64 148/72 03/03/17 08:18 64 148/72 03/03/17 08:00 96.4 64 20 148/72 94 Room Air 03/03/17 04:00 98.0 60 18 142/70 96 Room Air 03/03/17 00:00 97.3 64 19 135/65 95 Room Air 03/02/17 20:00 98.6 69 19 133/59 95 Room Air 03/02/17 16:00 97.3 70 20 148/55 93 Room Air Intake and Output 03/02/17 03/03/17 19:00 07:00 Intake Total 730 ml Output Total 750 ml Balance 730 ml -750 ml Intake Oral 730 ml Output Urine Total 750 ml # Voids 4 Objective improivng General Appearance: WD/WN HEENT: normocephalic, atraumatic Respiratory/Chest: chest wall non-tender, lungs clear Cardiovascular: normal peripheral pulses, normal rate Abdomen: normal bowel sounds, soft, non tender Extremities: no cyanosis, no clubbing, less redness clean dressing on left leg Laboratory Tests 03/03/17 04:50: White Blood Count 9.2, Red Blood Count 3.78L, Hemoglobin 12.0L, Hematocrit 35.8L , Mean Corpuscular Volume 95, Mean Corpuscular Hemoglobin 31.8H, Mean Corpuscular Hemoglobin Concent 33.6, Red Cell Distribution Width 12.6, Platelet Count 317, Mean Platelet Volume 6.3L, Neutrophils (%) (Auto) 60.8, Lymphocytes ( %) (Auto) 24.2, Monocytes (%) (Auto) 9.9, Eosinophils (%) (Auto) 3.8H, Basophils (%) (Auto) 1.3, Sodium Level 141, Potassium Level 4.5, Chloride Level 102, Carbon Dioxide Level 28, Anion Gap 11, Blood Urea Nitrogen 25H, Creatinine 1.0, Estimat Glomerular Filtration Rate , Glucose Level 112H, Calcium Level 8.7 , Phosphorus Level 4.3, Magnesium Level 2.2, Total Bilirubin 0.3, Aspartate Amino Transf (AST/SGOT) 20, Alanine Aminotransferase (ALT/SGPT) 14, Alkaline Phosphatase 44, Total Protein 7.0, Albumin 3.0L, Globulin 4.0, Albumin/Globulin Ratio 0.7L SHANE GALINDO Mar 03, 2017 14:42
--- NOTE | 2017-03-04 10:33 | Discharge Summary ---
Discharge Summary Hospital Course Date of Admission Feb 24, 2017 at 11:01 Date of Discharge Mar 03, 2017 at 14:00 Admitting Diagnosis LE cellulitis HPI Aries Castillo is a 81 year old male who was admitted on Feb 24, 2017 at 11 :01 for Lower Extremity Cellulitis Hospital Course dc summary #[id number] Discharge Medications New Medications: Cephalexin* (Keflex*) 500 Mg Capsule 500 MG ORAL EVERY 6 HOURS for 6 Days, CAP Trimethoprim/Sulfamethoxazole (Bactrim Ds Tablet) 1 Each Tablet 1 TAB ORAL TWICE A DAY for 6 Days, TAB Continued Medications: Amlodipine Besylate* (Amlodipine Besylate*) 5 Mg Tablet 5 MG ORAL DAILY, TAB Atenolol* (Tenormin*) 50 Mg Tablet 50 MG ORAL DAILY, TAB Tamsulosin Hcl (Tamsulosin Hcl*) 0.4 Mg Cap.er.24h 0.4 MG ORAL BEDTIME, CAP Discharge Condition Upon Discharge: stable Discharge Disposition Patient was discharged to Home with Home Health(06) Discharge Diagnoses: Discharge Instructions Discharge Instructions Special Instructions I have been assigned to complete a D/C Summary on this account. I was not involved in the patient management Chacha Rodriguez NP (Vanchtein) Mar 04, 2017 10:33
--- NOTE | 2017-03-05 12:45 | Discharge Summary 2 SIG ---
DATE OF ADMISSION: 02/24/2017 DATE OF DISCHARGE: 03/03/2017 REASON FOR ADMISSION: 81 years old male with a history of hypertension, diabetes, BPH, presented to emergency department with left leg swelling and pain for three days. The patient also reported initial fever. He denied chest pain, shortness of breath. Upon presentation, the patient was afebrile. Vital signs were stable. WBC - 21.3. Venous duplex left lower extremity revealed no evidence of acute DVT. The patient was started on antibiotic and admitted for further management. ADMITTING DIAGNOSES: 1. Sepsis l 2. Left lower extremity cellulitis 3. Hypertension 4. Diabetes. HOSPITAL COURSE: The patient was admitted. ID consult was requested. The patient was started on empiric antibiotics. Leukocytosis was trending down. Blood culture negative. However, no significant clinical improvement. MRI of the left tibia and fibula was performed to rule out deep infection, which revealed small irregular abscess within the posterior lateral subcutaneous fat of the distal leg/upper ankle. No evidence of osteomyelitis. Subsequently surgery was consulted. Patient undergone incision and drainage of the left leg abscess. The patient tolerated procedure well. Surgery closely followed. Wound culture negative. Patient with significant clinical improvement after incision and drainage fo abscess. Pain was addressed, managed, and controlled. Blood pressure was managed with beta-thad and calcium channel thad, was stable. Blood sugar was managed with sliding scale of insulin. Hemoglobin A1c -5.0 at goal . The patient was on metformin prior to admission. However creatinine was 1.5 on admission ,and metformin was stopped at that time. Renal parameters and electrolytes were closely monitored, potassium was replaced. Prior to discharge, stable electrolytes and renal parameters. Leukocytosis resolved. Pain controlled. Left lower leg with significantly decreased edema and erythema. Patient clinically improved. Surgeon cleared the patient for discharge. Surgeon recommended dressing until open area dry and healed . t Infectious Disease doctor cleared the patient for discharge on oral antibiotics Keflex and Bactrim to complete the course. The patient was stable for discharge. Home health was arranged for wound care. DISCHARGE DIAGNOSES: 1. Sepsis 2. Left leg bullous cellulitis 3. Left leg abscess. 4. Status post incision and drainage of the left leg abscess. 5. Hypertension. 6. Diabetes. DISCHARGE MEDICATIONS: See medication reconciliation list. DISCHARGE INSTRUCTIONS: The patient was discharged home with home health services for wound care. Follow up with the primary medical doctor. Surgeon also recommended to follow up with the surgeon in one to two weeks post discharge. Sybil Woods M.D. I have been assigned to dictate discharge summary on this account and I was not involved in the patient's management. Chacha Palmerjeremy NKathyPKathy DR: SIOMARA JOB#: [id number] CC: WALLY
== END 2017-03-03 14:00 | disposition home health service (06) | DRG 853 ==
LOC: EMR 10:55 → 4W 11:01 → EDBEDREQ 13:29 → 3E 03-01 15:15
PROC: 02HV33Z Insertion of Infusion Device into Superior Vena Cava, Percutaneous Approach (ICD-10-PCS; principal; 2017-02-27)
PROC: 0J9P0ZZ Drainage of Left Lower Leg Subcutaneous Tissue and Fascia, Open Approach (ICD-10-PCS; 2017-02-28)
DX: A41.9 Sepsis, unspecified organism (principal); N17.0 Acute kidney failure with tubular necrosis; L03.116 Cellulitis of left lower limb; L02.416 Cutaneous abscess of left lower limb; L03.115 Cellulitis of right lower limb; E11.9 Type 2 diabetes mellitus without complications; I10 Essential (primary) hypertension
CPT/HCPCS: 36415; 36569; 76937; 80053; 80202; 81003; 82550; 82553; 82962; 83036; 83605; 83735; 83880; 84100; 84484; 85007; 85025; 85651; 86140; 87040; 87070; 87205; 93971; 94664; A9585; J1815; J8499